=== PATIENT | male | born 1945 | race Caucasian/White ===

== ENCOUNTER → 2016-09-03 | Outpatient (CLI) | payer MEDICARE ==
--- NOTE | 2016-09-03 11:18 | MR ---
MRI kidneys with and without contrast HISTORY: Abnormal renal Patient's renal ultrasound report is available for correlation from outside institution dated 08/12/19 17 Multiplanar multisequence and postcontrast images obtained through the kidneys, patient received 20 c c MultiHance IV The spleen, gallbladder and pancreas are unremarkable. The liver shows signal drop on out of phase im aging suggestive of fatty infiltration. The adrenal glands are normal. The kidneys show no mass, ther e is a somewhat lobular contour correlating to patient's prior report within the right kidney. No abn ormal enhancement to suggest large renal mass. The kidneys excrete contrast bilaterally. Prominent co lumn of Vishal seen suspected within the right kidney. There is no ascites. No pleural effusions evident. IMPRESSION: No evident renal mass.
== END | disposition home or self-care (01) ==
LOC: RADMRIMAIN 08:40
PROVIDERS: ATTEND Urology
DX: C67.9 Malignant neoplasm of bladder, unspecified (principal)
CPT/HCPCS: 74183; A9577

== ENCOUNTER → 2018-05-31 | Outpatient (CLI) | payer MEDICARE ==
--- NOTE | 2018-05-31 12:01 | US ---
EXAMINATION TYPE: US kidneys/renal and bladder DATE OF EXAM: 05/31/2018 COMPARISON: MRI CLINICAL HISTORY: BLADDER CANCER D49.4. H/O Bladder CA EXAM MEASUREMENTS: Right Kidney: 10.6 x 4.5 x 4.5 cm Left Kidney: 11.7 x 5.9 x 4.9 cm Right Kidney: Lobulated contour, Probable prominent Column of Vishal as seen on MRI Left Kidney: Appeared wnl Bladder: Appeared wnl Bilateral Jets seen: No There is no evidence for hydronephrosis at this point in time. No nephrolithiasis is seen. No tamela s are identified. The urinary bladder is anechoic. Bilateral ureteral jets are seen. IMPRESSION: no distinct abnormality
== END | disposition home or self-care (01) ==
LOC: RADUSWWP 10:45
PROVIDERS: ATTEND Urology
DX: D49.4 Neoplasm of unspecified behavior of bladder (principal)
CPT/HCPCS: 76770

== ENCOUNTER 2018-10-25 11:55 | Day surgery (SDC) | payer MEDICARE ==
[2018-10-21 08:56] VITALS: BMI 32.7
--- NOTE | 2018-10-25 06:33 | P.GSHP ---
History of Present Illness H&P Date: 10/25/18 Chief Complaint: Bladder cancer The patient is a 72-year-old white male diagnosed with urothelial carcinoma of the bladder or right ureter in 2008. He underwent resection and subsequently received intravesical BCG. He had a recurrence in 2010. He was diagnosed with T1 grade 3 urothelial carcinoma of the bladder in June 2016. Tumors involving the right hemitrigone, right vesical neck, and bladder dome. He was treated with induction intravesical BCG but had persistent disease in November 2016. He received a second course of induction intravesical BCG, and is now receiving maintenance BCG. Biopsies in August 2017 showed high-grade noninvasive urothelial carcinoma involving the anterior bladder neck. He continued to receive maintenance BCG. In September 2018 he underwent resection of a tumor on the left trigone, which was low-grade urothelial carcinoma with CIS. A small lesion on the verumontanum was resected, revealing high-grade urothelial carcinoma. Lesion was invasive. The patient has elected to continue to receive BCG. He is aware of the risk of disease progression. He will undergo a TURP, both to rule out residual urothelial carcinoma of the prostatic urethra and also to allow better BCG penetration into the prostatic urethra. - Constitutional Constitutional: Denies chills, Denies fever - Genitourinary (Female) Genitourinary: Denies hematuria Past Medical History Past Medical History: Coronary Artery Disease (CAD), Cancer, Diabetes Mellitus, GERD/Reflux, Hypertension, Myocardial Infarction ([place]), Prostate Disorder Additional Past Medical History / Comment(s): gout, "tumors in bladder" Last Myocardial Infarction Date:: 2008 History of Any Multi-Drug Resistant Organisms: None Reported Past Surgical History: Bladder Surgery, Heart Catheterization With Stent, Joint Replacement Additional Past Surgical History / Comment(s): 3 stents, bladder surgery for cancer, cataract surgery, total rt knee replacement Past Anesthesia/Blood Transfusion Reactions: No Reported Reaction Date of Last Stent Placement:: 2008 Smoking Status: Former smoker - Past Family History Brother(s) Family Medical History: Cancer Medications and Allergies Home Medications Medication Instructions Recorded Confirmed Type Acetaminophen Tab [Tylenol] 500 mg PO DIRECTED PRN 01/10/14 10/03/18 History Allopurinol 100 mg PO AC-BRKFST 01/10/14 10/03/18 History Aspirin EC [Ecotrin Low Dose] 81 mg PO DAILY 01/10/14 10/03/18 History Atorvastatin [Lipitor] 40 mg PO DAILY 01/10/14 10/03/18 History Losartan/Hydrochlorothiazide 1 each PO QAM 01/10/14 10/03/18 History [Losartan-Hctz 100-25 mg Tab] Metoprolol Succinate [Toprol XL] 25 mg PO DAILY 01/10/14 10/03/18 History metFORMIN HCL 1,000 mg PO BID 01/10/14 10/03/18 History Insulin Detemir (Levemir) [Levemir] 40 unit SQ HS 10/03/18 History Tamsulosin HCl [Flomax] 0.4 mg PO DAILY 10/03/18 History Cholecalciferol [Vitamin D3] 400 unit PO DAILY 10/21/18 10/21/18 History Multivitamins, Thera [Multivitamin 1 tab PO DAILY 10/21/18 10/21/18 History (formulary)] Allergies Allergy/AdvReac Type Severity Reaction Status Date / Time No Known Allergies Allergy Verified 10/21/18 08:38 Surgical - Exam - General well developed, well nourished, no distress - Respiratory normal respiratory effort - Abdomen Abdomen: soft, non tender, no guarding, no rigid, no rebound - Genitourinary normal penis with no external lesions, testicles non-tender - Psychiatric oriented to time, oriented to person, oriented to place, speech is normal, memory intact Assessment and Plan (1) Malignant neoplasm of bladder Status: Acute Code(s): C67.9 - MALIGNANT NEOPLASM OF BLADDER, UNSPECIFIED SNOMED Code(s): 024829806 (2) Benign prostatic hyperplasia with lower urinary tract symptoms Status: Acute Code(s): N40.1 - BENIGN PROSTATIC HYPERPLASIA WITH LOWER URINARY TRACT SYMP SNOMED Code(s): 386846943 Plan: Cystoscopy, transurethral resection of prostate (TURP). If any lesions are seen within the bladder, these will be resected. Potential risks include anesthesia, bleeding, infection, bladder perforation, incontinence, vesical neck contracture, and urethral stricture.
[2018-10-25] MEDS: LACTATED RINGERS 1,000 ML IV SCH ×2 (12:45→13:20)
[2018-10-25 12:47] LABS: Glucose,Whole Blood 129 mg/dL (75-99)
[2018-10-25 12:56] LABS: Basophils # (A) 0.1 k/uL (0-0.2); Basophils % (A) 1 %; Eosinophils # (A) 0.5 k/uL (0-0.7); Eosinophils % (A) 6 %; HCT 44.2 % (39.0-53.0); HGB 14.8 gm/dL (13.0-17.5); Lymphocytes # (A) 1.9 k/uL (1.0-4.8); Lymphocytes % (A) 22 %; MCH 31.4 pg (25.0-35.0); MCHC 33.4 g/dL (31.0-37.0); MCV 94.2 fL (80.0-100.0); Mean Platelet Volume 8.4; Monocytes # (A) 0.5 k/uL (0-1.0); Monocytes % (A) 6 %; Neutrophils # (A) 5.6 k/uL (1.3-7.7); Neutrophils % (A) 63 %; Platelet Count 232 k/uL (150-450); RDW 14.4 % (11.5-15.5); WBC 8.8 k/uL (3.8-10.6)
[2018-10-25] MEDS ORDERED: ONDANSETRON 4 MG/2 ML VIAL IVP ONE (13:01)
[2018-10-25] MEDS ORDERED: DEXAMETHASONE SOD PHOSPHATE 10 MG/ML 1 ML VIAL IV ONE (13:02)
[2018-10-25 13:10] LABS: Calcium 9.1 mg/dL (8.4-10.2); Potassium 4.4 mmol/L (3.5-5.1)
[2018-10-25] MEDS ORDERED: SUCCINYLCHOLINE CHLORIDE 100 MG/5 ML SYR IV ONE (13:18)
[2018-10-25] MEDS ORDERED: MIDAZOLAM 2 MG/2 ML VIAL ONE (13:18)
[2018-10-25] MEDS ORDERED: fentaNYL (PF) 50 MCG/ML 2 ML AMP ONE (13:18)
[2018-10-25] MEDS ORDERED: PROPOFOL 10 MG/ML 20 ML VIAL IV ONE (13:18)
[2018-10-25] MEDS ORDERED: LIDOCAINE 1% INJ 10MG/ML (20 ML MDV) ONE (13:18)
[2018-10-25 15:00] VITALS: RESP 16; TEMP 97
--- NOTE | 2018-10-25 15:13 | P.OP ---
Date of Procedure: 10/25/18 Preoperative Diagnosis: BPH, urothelial carcinoma of the bladder Postoperative Diagnosis: Same Procedure(s) Performed: Cystoscopy, TURbladder tumors (Medium), transurethral resection of prostate (TURP) Anesthesia: ERVIN Surgeon: Sharif Crowe Estimated Blood Loss (ml): 20 IV fluids (ml): 500 Pathology: other (Biopsies from right bladder dome, left trigone, prostatic urethra) Condition: stable Disposition: PACU Indications for Procedure: The patient is a 72-year-old white male diagnosed with urothelial carcinoma of the bladder or right ureter in 2008. He underwent resection and subsequently received intravesical BCG. He had a recurrence in 2010. He was diagnosed with T1 grade 3 urothelial carcinoma of the bladder in June 2016. Tumors involving the right hemitrigone, right vesical neck, and bladder dome. He was treated with induction intravesical BCG but had persistent disease in November 2016. He received a second course of induction intravesical BCG, and is now receiving maintenance BCG. Biopsies in August 2017 showed high-grade noninvasive urothelial carcinoma involving the anterior bladder neck. He continued to receive maintenance BCG. In September 2018 he underwent resection of a tumor on the left trigone, which was low-grade urothelial carcinoma with CIS. A small lesion on the verumontanum was resected, revealing high-grade urothelial carcinoma. Lesion was invasive. The patient has elected to continue to receive BCG. He is aware of the risk of disease progression. He will undergo a TURP, both to rule out residual urothelial carcinoma of the prostatic urethra and also to allow better BCG penetration into the prostatic urethra. Operative Findings: No definite evidence of residual carcinoma Description of Procedure: The patient was taken in the operating room and placed in the dorsolithotomy position. The external genitalia was prepped and draped sterilely. The [place] urethrotome was used to incise the urethra to 26-Australian. The 25-Australian [facility] resectoscope sheath was introduced into the bladder. The bladder was inspected. Inflammation was noted on the left hemitrigone due to recent resection. The left ureteral orifice was not seen. The right ureteral orifice was gaping, and the distal ureter appears normal. A small diverticulum was seen at the right bladder dome. Adjacent to this was an area of erythema. Examination of the prostate revealed partial obstruction with a bilobar configuration. Using the bipolar cutting loop, the area of erythema at the right bladder dome was resected down to the muscle. Next, tissue from the left hemitrigone was resected down to the muscle. The base of the resection bed at the dome was fulgurated, obtaining excellent hemostasis. Fulguration was utilized more sparingly within the trigone, though hemostasis was excellent. The posterior prostatic urethra and proximal verumontanum were resected next, and sent as a separate specimen. Next, the posterior aspect of the lateral lobes were resected. The prostatic fossa was then carefully examined, and any areas of bleeding were controlled with electrocautery. Excellent hemostasis was attained. The resectoscope was withdrawn into the bulbous urethra. The external urinary sphincter remained intact. The prostatic fossa was open. The resectoscope was removed, and a 20 Australian Galarza catheter was placed. The return was clear. The patient tolerated the procedure well was taken to the recovery room in stable condition.
[2018-10-25 15:19] LABS: Glucose,Whole Blood 122 mg/dL (75-99)
[2018-10-25 15:57] VITALS: BP 139/81; PULSE 74
== END 2018-10-25 16:43 | disposition home or self-care (01) ==
LOC: OR 11:55
PROVIDERS: ATTEND Urology
DX: N32.89 Other specified disorders of bladder (principal); N40.1 Benign prostatic hyperplasia with lower urinary tract symptoms; N13.8 Other obstructive and reflux uropathy; N32.3 Diverticulum of bladder; I25.10 Atherosclerotic heart disease of native coronary artery without angina pectoris; I10 Essential (primary) hypertension; E78.5 Hyperlipidemia, unspecified; Z87.891 Personal history of nicotine dependence; E11.9 Type 2 diabetes mellitus without complications; K21.9 Gastro-esophageal reflux disease without esophagitis; Z98.1 Arthrodesis status; I25.2 Old myocardial infarction; M10.9 Gout, unspecified; Z79.82 Long term (current) use of aspirin; Z79.4 Long term (current) use of insulin; Z79.899 Other long term (current) drug therapy
CPT/HCPCS: 88305; 80048; 85025; 52601; 88307; 52235; J1100; J0690; J2405

== ENCOUNTER 2019-02-01 07:58 | Day surgery (SDC) | payer MEDICARE ==
[2019-02-01 08:34] LABS: Mean Platelet Volume 9.1; Platelet Count 200 k/uL (150-450)
[2019-02-01 08:41] LABS: Prothrombin Time 10.9 sec (9.0-12.0)
[2019-02-01] MEDS ORDERED: ALPRAZolam 0.25 MG TAB PO STA (08:52)
[2019-02-01 08:56] VITALS: TEMP 98.3
[2019-02-01 10:34] VITALS: BP 141/76; PULSE 69; RESP 18
--- NOTE | 2019-02-02 08:02 | CT ---
EXAMINATION TYPE: CT discontinued procedure DATE OF EXAM: 02/01/2019 COMPARISON: CT 12/15/2018 HISTORY: Lung nodule CT DLP: 344 mGycm Automated exposure control for dose reduction was used. Helical imaging performed in a limited fashio n through the level of the lung nodule. FINDINGS: Maximal barrier technique was utilized. The skin overlying a suitable path to the patient's nodule wa s localized with CT and the overlying skin prepped and draped. Lidocaine used for local anesthesia. O n additional breath holds and localization for the needle the nodule shows a changing location likely due to differences breath holds. Exam is aborted. No immediate complication. Patient remained in sta ble condition. Needle was removed. IMPRESSION: ATTEMPTED LUNG BIOPSY DESCRIBED. EXAM WAS ABORTED.
== END 2019-02-01 10:31 | disposition home or self-care (01) ==
LOC: RADPROMAIN 07:58 → 1SOBS 09:20 → RADPROMAIN 09:20
PROVIDERS: ATTEND Surgery
DX: R91.1 Solitary pulmonary nodule (principal); Z53.09 Procedure and treatment not carried out because of other contraindication
CPT/HCPCS: 82565; 82947; 84520; 85049; 85610; 76380; Q9967

== ENCOUNTER → 2019-04-15 | Outpatient (CLI) | payer MEDICARE ==
[2019-04-15 09:15] LABS: Basophils # (A) 0.1 k/uL (0-0.2); Basophils % (A) 1 %; Eosinophils # (A) 0.3 k/uL (0-0.7); Eosinophils % (A) 4 %; HCT 45.6 % (39.0-53.0); HGB 14.6 gm/dL (13.0-17.5); Lymphocytes # (A) 2.1 k/uL (1.0-4.8); Lymphocytes % (A) 28 %; MCH 30.4 pg (25.0-35.0); MCV 95.1 fL (80.0-100.0); Monocytes # (A) 0.6 k/uL (0-1.0); Monocytes % (A) 8 %; Neutrophils # (A) 4.2 k/uL (1.3-7.7); Neutrophils % (A) 57 %; Platelet Count 199 k/uL (150-450); RBC 4.79 m/uL (4.30-5.90); RDW 12.4 % (11.5-15.5); WBC 7.3 k/uL (3.8-10.6)
[2019-04-15 09:25] LABS: Potassium 4.5 mmol/L (3.5-5.1)
[2019-04-15 09:31] LABS: Partial Thromboplastin Time 22.5 sec (22.0-30.0); Prothrombin Time 10.8 sec (9.0-12.0)
[2019-04-15 10:01] LABS: Appearance,Urine Clear (Clear); Bilirubin,Urine Negative (Negative); Blood,Urine Negative (Negative); Color,Urine Yellow; Glucose,Urine (UA) Negative (Negative); Ketones,Urine Negative (Negative); Leukocyte Esterase,Urine Negative (Negative); Nitrite,Urine Negative (Negative); Protein,Urine Negative (Negative); Specific Gravity,Urine 1.021 (1.001-1.035); Urobilinogen,Urine <2.0 mg/dL (<2.0)
== END ==
LOC: LABPAT 08:51
PROVIDERS: ATTEND Thoracic Surgery (Cardiothoracic Vascular Surgery)
DX: Z01.812 Encounter for preprocedural laboratory examination (principal); C34.12 Malignant neoplasm of upper lobe, left bronchus or lung
CPT/HCPCS: 80051; 81003; 82565; 82947; 84520; 85025; 85610; 85730; 87086

== ENCOUNTER 2019-04-20 05:59 | Inpatient (IN) | payer MEDICARE ==
[2019-04-13 16:02] VITALS: BMI 33.3
[~2019-04-20 05:59] MED LIST: DEXAMETHASONE SOD PHOSPHATE 10 MG/ML 1 ML VIAL IV ONE; LIDOCAINE 1% (10MG/ML) FOR IV START INTRADERMA PRN; MIDAZOLAM 2 MG/2 ML VIAL IV PRN; ONDANSETRON 4 MG/2 ML VIAL IVP ONE; fentaNYL (PF) 50 MCG/ML 2 ML AMP IVP PRN
[2019-04-20] MEDS ORDERED: LIDOCAINE 1% (10MG/ML) FOR IV START INTRADERMA ONE (06:50)
[2019-04-20] MEDS: LACTATED RINGERS 1,000 ML IV SCH (06:50)
[2019-04-20 06:58] LABS: Glucose,Whole Blood 202 mg/dL (75-99)
[2019-04-20] MEDS ORDERED: MIDAZOLAM 2 MG/2 ML VIAL IV ONE (07:20)
[2019-04-20] MEDS ORDERED: PHENYLEPHRINE-0.9% NACL SYG 1 MG/10 ML SYRINGE ONE (07:32)
[2019-04-20] MEDS ORDERED: GLYCOPYRROLATE 0.2 MG/ML 2 ML VIAL ONE (07:32)
[2019-04-20] MEDS ORDERED: LIDOCAINE 1% INJ 10MG/ML (20 ML MDV) ONE (07:32)
[2019-04-20] MEDS ORDERED: NEOSTIGMINE 1 MG/ML 10 ML VIAL ONE (07:32)
[2019-04-20] MEDS ORDERED: HYDROmorphone (PF) 1 MG/ML ONE (07:32)
[2019-04-20] MEDS ORDERED: ROCURONIUM BROMIDE 10 MG/ML 5 ML VIAL IV ONE (07:32)
[2019-04-20] MEDS ORDERED: PROPOFOL 10 MG/ML 20 ML VIAL IV ONE (07:32)
[2019-04-20] MEDS ORDERED: fentaNYL (PF) 50 MCG/ML 2 ML AMP ONE (07:32)
[2019-04-20] MEDS ORDERED: BUPIVACAINE (PF) 0.5% 30 ML VIAL SQ ONE (08:37)
[2019-04-20] MEDS ORDERED: LACTATED RINGERS 1,000 ML IV ONE (10:17)
--- NOTE | 2019-04-20 11:06 | P.OP ---
Date of Procedure: 04/20/19 Preoperative Diagnosis: Squamous cell carcinoma left upper lobe Postoperative Diagnosis: Same Procedure(s) Performed: Robotic-assisted thoracoscopic left upper lobectomy with mediastinal lymph node dissection Anesthesia: ERVIN Surgeon: Juancarlos Palafox Janitorial Assistant #1: Aric Yu Janitorial Assistant #2: Arie Morales Estimated Blood Loss (ml): 100 IV fluids (ml): 1,500 Urine output (ml): 300 Pathology: other (Left upper lobe, lymph nodes from station was L5, L6, 7, L8, L 10, L 11) Condition: stable Disposition: PACU Indications for Procedure: 73-year-old male with enlarging peripheral mass in the left upper lobe biopsy- proven squamous cell carcinoma with no evidence of metastasis by PET scan. Operative Findings: Small peripheral mass left upper lobe was overlying pleural retraction, moderate anthracotic adenopathy in the mediastinal and hilar regions Description of Procedure: The patient was brought to the operating room, placed supine on the operating table, anesthetized and intubated. Double lumen tube was placed and positioned with fiberoptic bronchoscopy. No endobronchial lesions were noted. Tube was secured and the patient turned in the right lateral decubitus position and appropriately positioned for robotic lobectomy. The left chest was marked and then sterilely prepped and draped. For robotic ports were placed. The first was placed in the seventh interspace in the anterior axillary line and was an 8 mm port. 10 cm anterior and 10 cm posterior to this to 10.5 cm ports were placed. Posteriorly in the fourth interspace a second 8 mm port was placed. Working port was placed at the level of the diaphragm between the 2 most anterior port. CO2 insufflation had begun once the first port was placed and co nfirmation of placement in the pleural space was obtained. The robot was now docked. Dissection was begun in the inferior pulmonary ligament and this was taken down. Dissection was continued posteriorly. The LAD and level VII lymph nodes were dissected and sent for permanent section. Dissection was carried along the mainstem bronchus and the L 10 lymph nodes were sent. Dissection was continued superiorly on the pulmonary artery. L6 lymph nodes were dissected and sent. The superior segmental branch of the pulmonary artery was identified to the superior segment of the left lower lobe. Dissection was carried superior to this and a moderate-sized branch of the pulmonary artery leading to the upper lobe was identified. This was dissected out and ligated and divided with a robotic vascular stapler. Dissection was now carried into the fissure. We were able to identify the pulmonary artery at the depths of the fissure and divide the fissure posterior to this with a single firing of a robotic medium stapler. We are now able to dissected out the lingular branch of the pulmonary artery and ligated and divided it with a robotic stapler. Dissection was now carried anteriorly. The superior pulmonary vein was dissected out. Was ligated and divided with a robotic stapler. Dissection was carried back onto the left mainstem bronchus. The division of the left mainstem bronchus to upper and lower lobe was identified. L 11 lymph nodes were dissected in this region and sent for permanent section. The upper lobe bronchus was encircled and ligated and divided with a robotic green stapler. We were now able to identify and ligate and divide the final remaining branch of the pulmonary artery which was the truncus anteriosus cyst. This was divided with a single firing of a robotic vascular stapler. The fissures were now completed with several firings of a robotic blue stapler. Lobectomy specimen was placed in an Endo Catch bag. The hilum was checked for hemostasis. There was a little bit of bright red oozing and this was controlled with some Surgicel. Chest was then irrigated with warm water and the lung inflated and the bronchial stump was checked and noted to be without air leak. 28-Qatari chest tube was post placed through the most anterior robotic port incision and positioned posterior apically. It was secured with an 0 Ethibond suture. The lung was inflated. The robot was undocked and the incisions closed with layers of Vicryl suture. The lobectomy specimen had been removed through the working port incision which required only minimal enlargement. The specimen was sent for frozen section of the bronchial margin which returned negative. Rib blocks were performed at the level incision with half percent Marcaine posteriorly. Dry sterile dressings were applied and the patient was turned supine and extubated and transferred to recovery in stable condition.
[2019-04-20] MEDS: HYDROmorphone 0.5 MG/0.5 ML SYRINGE IVP PRN ×4 (11:37→12:45)
[2019-04-20 11:43] LABS: Glucose,Whole Blood 197 mg/dL (75-99)
--- NOTE | 2019-04-20 11:57 | XR ---
EXAMINATION TYPE: XR chest 1V portable DATE OF EXAM: 04/20/2019 COMPARISON: CT chest 12/15/2018, chest x-ray 1 01/16/2014 HISTORY: Chest tube, postop TECHNIQUE: Single frontal view of the chest is obtained. FINDINGS: Left-sided chest tube is in place. Small left pneumothorax is present. Subcutaneous emphys rober is noted. No evident pleural effusion. Patient is rotated. Heart size is within normal limits. Dolores ng volumes are low. IMPRESSION: Indwelling chest tube as described.
[2019-04-20 12:57] LABS: Glucose,Whole Blood 223 mg/dL (75-99)
[2019-04-20] MEDS ORDERED: BISACODYL 10 MG SUPP RECTAL PRN (13:11)
[2019-04-20] MEDS ORDERED: SODIUM CHLORIDE 0.9% 1,000 ML IV SCH (13:11)
[2019-04-20] MEDS ORDERED: ONDANSETRON 4 MG/2 ML VIAL IVP PRN (13:11)
[2019-04-20] MEDS ORDERED: PANTOPRAZOLE 40 MG TABLET PO PRN (13:11)
[2019-04-20] MEDS ORDERED: IPRATROPIUM-ALBUTEROL 3 ML NEB IH PRN (13:11)
[2019-04-20 14:35] LABS: HCT 40.9 % (39.0-53.0); HGB 13.2 gm/dL (13.0-17.5); MCH 31.6 pg (25.0-35.0); MCHC 32.3 g/dL (31.0-37.0); MCV 97.7 fL (80.0-100.0); Mean Platelet Volume 9.3; Platelet Count 194 k/uL (150-450); RBC 4.19 m/uL (4.30-5.90); RDW 12.6 % (11.5-15.5); WBC 14.1 k/uL (3.8-10.6)
[2019-04-20] MEDS: KETOROLAC 30 MG/ML 1 ML VIAL IVP SCH ×2 (14:54→20:17)
[2019-04-20] MEDS: traMADol 50 MG TAB PO SCH ×2 (14:56→20:17)
[2019-04-20 15:09] LABS: Calcium 8.4 mg/dL (8.4-10.2); Potassium 4.4 mmol/L (3.5-5.1)
[2019-04-20] MEDS: IPRATROPIUM-ALBUTEROL 3 ML NEB IH SCH ×3 (15:32→20:11)
[2019-04-20 16:34] LABS: Glucose,Whole Blood 231 mg/dL (75-99)
--- NOTE | 2019-04-20 17:00 | CONS ---
CONSULTATION Dax Walsh is a 73-year-old male who presented to [facility] and underwent left upper lobectomy for squamous cell cancer of the lung. He had presented initially in June of 2018 with a left upper lobe mass. He had a PET scan that was slightly positive and had a repeat CT scan which showed an increase in the size of the mass. He was subsequently referred to Thoracic Surgery in September of 2018 for resection. He underwent resection today and has some pain in the left at the surgical site but otherwise does not complain of any shortness of breath. PAST MEDICAL HISTORY: His past medical history is positive for bladder cancer, history of a previous acute myocardial infarction, history of carpal tunnel syndrome, history of gout, history of bilateral cataract surgery, history of cardiac stent placement, colonoscopy. SOCIAL HISTORY: Patient is a former smoker. He quit smoking 30 years ago. He does not drink alcohol excessively. MEDICATIONS: Medications prior to admission were cannabidiol, aspirin EC, metformin, tamsulosin, Prilosec, Singulair, Toprol-XL, Hyzaar, Levemir insulin, vitamin D3, barley powder, Lipitor and acetaminophen. REVIEW OF SYSTEMS: Noncontributory. PHYSICAL EXAMINATION: His blood pressure is 129/65, respiratory rate of 16, pulse rate of 67. Oxygen saturation on 3 L by nasal cannula is 97%. HEENT reveals pupils that are equal. Chest reveals decreased breath sounds on the left with chest tube in place. Right is relatively clear. Cardiovascular system is in S1, S2. Abdomen is soft. There is no pedal edema. White count is 14.1, hemoglobin of 13.2, glucose of 223. Chest x-ray shows evidence of left-sided chest tube with a small left pneumothorax, some subcutaneous emphysema. IMPRESSION AT THIS TIME: 1. Squamous cell cancer of the lung, status post left upper lobectomy with lymph node dissection. 2. History of bladder cancer. 3. Diabetes mellitus. 4. Coronary artery disease. At this point in time, I would recommend incentive spirometry. I have talked to the nurse to see if he can get an incentive spirometer, which he does not have. Keep him on GI and DVT prophylaxis. Would only use bronchodilators on a p.r.n. basis, as his preoperative pulmonary function test was relatively normal. I would like to thank you for allowing me the privilege of participating in the care of my patient. We will follow him closely during his hospital stay and appreciate the opportunity to participate in his care. MICHAEL / ANDI: [id number] /
[2019-04-20] MEDS: HEPARIN SODIUM,PORCINE 5,000 UNIT/ML 1 ML VIAL SQ SCH ×2 (17:03→22:23)
[2019-04-20] MEDS: ACETAMINOPHEN IV (For NPO) 1,000 MG in EMPTY BAG 1 BAG IVPB SCH ×2 (17:03→20:19)
[2019-04-20] MEDS: INSULIN ASPART (NovoLOG) 100 UNIT/ML VIAL SQ SCH ×2 (17:07→20:19)
[2019-04-20 20:13] LABS: Glucose,Whole Blood 181 mg/dL (75-99)
[2019-04-20] MEDS: ATORVASTATIN 40 MG TAB PO SCH (20:18)
[2019-04-20] MEDS: INSULIN DETEMIR (LEVEMIR) 100 UNIT/ML SYR SQ SCH (20:18)
[2019-04-21] MEDS: KETOROLAC 30 MG/ML 1 ML VIAL IVP SCH ×2 (04:34→08:53)
[2019-04-21 06:17] LABS: Glucose,Whole Blood 162 mg/dL (75-99)
[2019-04-21] MEDS: INSULIN ASPART (NovoLOG) 100 UNIT/ML VIAL SQ SCH ×4 (06:34→21:53)
[2019-04-21 06:40] LABS: Basophils % (A) 0 %; Eosinophils # (A) 0.3 k/uL (0-0.7); Eosinophils % (A) 4 %; HCT 36.2 % (39.0-53.0); HGB 11.9 gm/dL (13.0-17.5); Lymphocytes # (A) 1.3 k/uL (1.0-4.8); Lymphocytes % (A) 16 %; MCH 31.3 pg (25.0-35.0); MCHC 32.8 g/dL (31.0-37.0); MCV 95.6 fL (80.0-100.0); Mean Platelet Volume 9.2; Monocytes # (A) 0.5 k/uL (0-1.0); Monocytes % (A) 7 %; Neutrophils % (A) 73 %; Platelet Count 168 k/uL (150-450); RBC 3.79 m/uL (4.30-5.90); RDW 12.6 % (11.5-15.5); WBC 8.3 k/uL (3.8-10.6)
[2019-04-21 06:51] LABS: Calcium 7.9 mg/dL (8.4-10.2); Potassium 4.3 mmol/L (3.5-5.1)
--- NOTE | 2019-04-21 07:52 | XR ---
EXAMINATION TYPE: XR chest 1V DATE OF EXAM: 04/21/2019 COMPARISON: Prior chest x-ray 04/20/2019 HISTORY: Chest tube TECHNIQUE: Single frontal view of the chest is obtained. FINDINGS: There is no significant interval change. Patchy density present at the lung base likely po stoperative. IMPRESSION: Left-sided chest tube is in place. No sizable pneumothorax. Cardiomediastinal silhouette shows a similar appearance.
[2019-04-21] MEDS: IPRATROPIUM-ALBUTEROL 3 ML NEB IH SCH ×4 (08:11→20:58)
[2019-04-21] MEDS: HEPARIN SODIUM,PORCINE 5,000 UNIT/ML 1 ML VIAL SQ SCH ×2 (08:52→16:21)
[2019-04-21] MEDS: CHOLECALCIFEROL 400 UNIT TAB PO SCH (08:53)
[2019-04-21] MEDS: ASPIRIN 81 MG PO SCH (08:53)
[2019-04-21] MEDS: MULTIVITAMINS, THERA 1 EACH TAB PO SCH (08:58)
[2019-04-21] MEDS: TAMSULOSIN 0.4 MG CAP.ER.24H PO SCH (08:58)
[2019-04-21] MEDS ORDERED: METOPROLOL SUCCINATE (ER) 25 MG TAB.ER.24H PO SCH (09:00)
[2019-04-21] MEDS ORDERED: LOSARTAN-HCTZ 50-12.5 MG 1 EACH TAB PO SCH (09:00)
[2019-04-21] MEDS: traMADol 50 MG TAB PO SCH ×4 (09:53→21:52)
[2019-04-21] MEDS ORDERED: ACETAMINOPHEN TAB 500 MG TAB PO PRN (10:14)
--- NOTE | 2019-04-21 11:07 | P.PN ---
Subjective Progress Note Date: 04/21/19 Principal diagnosis: Squamous cell carcinoma left upper lobe. Past medical history significant for type 2 diabetes mellitus, hypertension, hyperlipidemia, cardiomegaly asthma, sandro dder cancer, myocardial infarction, gout, coronary artery disease with previous multiple stent placement, and remote history of smoking quit over 30 years ago. POD #1 robotic assisted thoracoscopic left upper lobectomy with mediastinal lymph node dissection. The patient is sitting up to the bedside chair on the cardiac stepdown unit. He is in no acute distress. Denies any complaints of shortness of breath and is only complaining of surgical type pain with taking a deep breath. He ambulated with minimal assistance in the cardiac stepdown unit hallway and tolerated well. Oxygen saturations 96% on 2 L nasal cannula and he is achieving 1000 mL on his incentive spirometry. Left pleural chest tube remains in place to water seal. No air leak is present. 60 mL output in the last 8 hours, 430 mL output since surgery. He is tolerating oral intake. A chest x-ray was completed this [facility] [place] which demonstrated a left pleural chest tube to be in place with no sizable pneumothorax. Objective - Vital Signs Vital signs: Vital Signs Temp 97.8 F 04/21/19 10:02 Pulse 76 04/21/19 10:02 Resp 18 04/21/19 10:02 BP 129/76 04/21/19 10:02 Pulse Ox 96 04/21/19 10:02 Intake & Output 04/20/19 04/21/19 04/21/19 18:59 06:59 18:59 Intake Total 2440 944 240 Output Total 675 795 30 Balance 1765 149 210 Weight 107 kg Intake: IV 1900 Intake, IV Titration 500 Amount ACETAMINOPHEN IV (For NPO 400 ) 1,000 mg In Empty Bag 1 bag @ 400 mls/hr IVPB Q6H ITA Rx#:[id number] ceFAZolin 2 gm In Sodium 100 Chloride 0.9% 50 ml @ 100 mls/hr IVPB Q8HR ITA Rx# :[id number] Oral 540 444 240 Output: Drainage 120 30 Chest 120 30 Urine 475 675 Pleural Fluid 100 Estimated Blood Loss 100 Other: Voiding Method Indwelling Catheter Indwelling Catheter - Constitutional General appearance: Present: cooperative, no acute distress, obese - Respiratory Details: Lung sounds essentially clear throughout, diminished to his left lower lobe. Respirations are symmetrical and nonlabored. Oxygen saturation is 96% on 2 L nasal cannula. Achieving 1000 mL on his incentive spirometry. Pleural chest tube remains in place to low continuous wall suction -20 cm H2O. No air leak is present. Draining thin serosanguineous drainage with 60 mL output in the last 8 hours, 430 mL output since surgery. - Cardiovascular Details: Regular rhythm and rate. S1 and S2 present, negative for S3, gallop or murmur. No edema present. Sequential compression devices in place to his bilateral lower extremities. - Gastrointestinal Gastrointestinal Comment(s): Abdomen is soft, nontender and nondistended. Active bowel sounds present all 4 abdominal quadrants. No guarding or rigidity. Tolerating oral intake. Passing flatus. - Genitourinary Genitourinary Comment(s): Following clear yellow urine. 350 mL output in the last 8 hours. - Integumentary Integumentary Comment(s): Skin is warm and dry. No clubbing or cyanosis is present. Left chest incisions with dressings clean, dry and in place. - Neurologic Neurologic: Present: CNII-XII intact - Musculoskeletal Musculoskeletal: Present: gait normal, strength equal bilaterally - Psychiatric Psychiatric: Present: A&O x's 3, appropriate affect, intact judgment & insight - Allied health notes Allied health notes reviewed: nursing - Labs CBC & Chem 7: 04/21/19 06:12 04/21/19 06:12 Labs: Abnormal Lab Results - Last 24 Hours (Table) 04/20/19 04/20/19 04/20/19 Range/Units 11:39 12:56 13:55 WBC (3.8-10.6) k/uL RBC (4.30-5.90) m/uL Hgb (13.0-17.5) gm/dL Hct (39.0-53.0) % Sodium (137-145) mmol/L BUN (9-20) mg/dL Creatinine (0.66-1.25) mg/dL Glucose 229 H (74-99) mg/dL POC Glucose (mg/dL) 197 H 223 H (75-99) mg/dL Calcium (8.4-10.2) mg/dL 04/20/19 04/20/19 04/20/19 Range/Units 13:56 16:32 20:12 WBC 14.1 H (3.8-10.6) k/uL RBC 4.19 L (4.30-5.90) m/uL Hgb (13.0-17.5) gm/dL Hct (39.0-53.0) % Sodium (137-145) mmol/L BUN (9-20) mg/dL Creatinine (0.66-1.25) mg/dL Glucose (74-99) mg/dL POC Glucose (mg/dL) 231 H 181 H (75-99) mg/dL Calcium (8.4-10.2) mg/dL 04/21/19 04/21/19 04/21/19 Range/Units 06:12 06:12 06:15 WBC (3.8-10.6) k/uL RBC 3.79 L (4.30-5.90) m/uL Hgb 11.9 L (13.0-17.5) gm/dL Hct 36.2 L (39.0-53.0) % Sodium 134 L (137-145) mmol/L BUN 24 H (9-20) mg/dL Creatinine 1.28 H (0.66-1.25) mg/dL Glucose 159 H (74-99) mg/dL POC Glucose (mg/dL) 162 H (75-99) mg/dL Calcium 7.9 L (8.4-10.2) mg/dL - Imaging and Cardiology Chest x-ray: report reviewed, image reviewed Assessment and Plan Assessment: 1. Squamous cell carcinoma left upper lobe, status post robotic-assisted thoracoscopic left upper lobectomy with mediastinal lymph node dissection 2. Type 2 diabetes mellitus 3. Hypertension 4. Hyperlipidemia 5. History of myocardial infarction 6. Cardiomegaly 7. History of coronary artery disease with previous multiple stent placements 8. History of bladder cancer 9. Asthma 10. History of gout 11. Remote history of smoking quit over 30 years ago Plan: 1. Keep left pleural chest tube in place to water seal. Continue to record accurate I's and O's. 2. Encourage use of his incentive spirometry every hour while awake. 3. Wean oxygen as tolerated. Bronchodilator and pulmonary management recommen dations per Dr. JORJE Rasheed. 4. Encourage ambulation as tolerated. Physical and occupational therapy consulted. Out of bed for all meals. 5. Surgical pathology results remain pending. 6. Pain control per current when necessary orders. Discontinue Toradol as his BUN and creatinine are slightly elevated today. 7. Medical management/diabetes management per primary care service. 8. Continue to monitor daily labs and chest x-rays. 9. GI and DVT prophylaxis. 10. More recommendations to follow based on patient's clinical course. Time with Patient: Greater than 30
[2019-04-21 12:07] LABS: Glucose,Whole Blood 227 mg/dL (75-99)
--- NOTE | 2019-04-21 12:12 | PN ---
PROGRESS NOTE DATE OF SERVICE: 04/21/2019 He has been hemodynamically stable. He is less short of breath. He has less pain at his surgical site. He does not have an air leak on the left and has decreased chest tube output over the last 8 hours. PHYSICAL EXAMINATION: His blood pressure is 115/68, respiratory rate of 16, pulse rate of 68, temperature 98.2, O2 saturation on 2 L by nasal cannula is 94%. HEENT is unremarkable. Chest reveals decreased breath sounds on the left with chest tube in place. Right is relatively clear. Cardiovascular system reveals an S1, S2. Abdomen is soft. There is no pedal edema. LABS: Reveal white count 8.3, hemoglobin of 11.9. Chest x-ray shows no pneumothorax but chest tube place on the left. IMPRESSION: 1. Status post left upper lobectomy with lymph node dissection. 2. History of bladder cancer. Continue incentive spirometry, increase his activity level. Consider removal of chest tube at this time. MMODL / IJN: [id number] /
--- NOTE | 2019-04-21 12:24 | P.CONS ---
History of Present Illness - Reason for Consult Management of type 2 diabetes mellitus and hypertension - History of Present Illness Patient developed pleasant 73-year-old gentleman came admitted for elective left upper lobectomy first, cell cancer of the lung underwent surgery patient has a left-sided chest tube which is still draining. Patient is complaining of pain in moderate pain which is controlled with pain medications. Pain increases with deep breathing. Patient had any fever chills cough. Patient denied any nausea vomiting. Patient blood sugars are fairly controlled on present regimen on long-acting insulin sliding scale insulin metformin is on hold Review of Systems REVIEW OF SYSTEMS: CONSTITUTIONAL: No fever, no malaise, no fatigue. HEENT: No recent visual problems or hearing problems. Denied any sore throat. CARDIOVASCULAR: No orthopnea, PND, no palpitations, no syncope. PULMONARY: No shortness of breath, no cough, no hemoptysis. GASTROINTESTINAL: No diarrhea, no nausea, no vomiting, no abdominal pain. NEUROLOGICAL: No headaches, no weakness, no numbness. HEMATOLOGICAL: Denies any bleeding or petechiae. GENITOURINARY: Denies any burning micturition, frequency, or urgency. MUSCULOSKELETAL/RHEUMATOLOGICAL: Denies any joint pain, swelling, or any muscle pain. ENDOCRINE: Denies any polyuria or polydipsia. The rest of the 14-point review of systems is negative. Past Medical History Past Medical History: Coronary Artery Disease (CAD), Cancer, Diabetes Mellitus, GERD/Reflux, Hyperlipidemia, Hypertension, Myocardial Infarction (ME), Prostate Disorder Additional Past Medical History / Comment(s): gout, bladder Ca, finishing intrabladder dwelling chemo (BCG) treatment week of 01/24/19 Last Myocardial Infarction Date:: 2008 History of Any Multi-Drug Resistant Organisms: None Reported Past Surgical History: Bladder Surgery, Heart Catheterization With Stent, Joint Replacement Additional Past Surgical History / Comment(s): 3 cardiac stents, bladder surgery for cancer, anais cataract surgery, total anais knee replacement, cervical fusion Past Anesthesia/Blood Transfusion Reactions: No Reported Reaction Date of Last Stent Placement:: 2008 Past Psychological History: No Psychological Hx Reported Smoking Status: Former smoker Past Alcohol Use History: Rare Additional Past Alcohol Use History / Comment(s): quit - sep 2008 Past Drug Use History: None Reported Additional Drug Use History / Comment(s): cbd cream to knees for pain - Past Family History Brother(s) Family Medical History: Cancer Medications and Allergies Home Medications Medication Instructions Recorded Confirmed Type Acetaminophen Tab [Tylenol] 500 mg PO DIRECTED PRN 01/10/14 04/13/19 History Aspirin EC [Ecotrin Low Dose] 81 mg PO DAILY 01/10/14 04/13/19 History Atorvastatin [Lipitor] 40 mg PO HS 01/10/14 04/13/19 History Metoprolol Succinate [Toprol XL] 25 mg PO DAILY 01/10/14 04/13/19 History metFORMIN HCL 1,000 mg PO BID 01/10/14 04/13/19 History Insulin Detemir (Levemir) [Levemir] 40 unit SQ HS 10/03/18 04/13/19 History Tamsulosin HCl [Flomax] 0.4 mg PO DAILY 10/03/18 04/13/19 History Cholecalciferol [Vitamin D3] 400 unit PO DAILY 10/21/18 04/13/19 History Multivitamins, Thera [Multivitamin 1 tab PO DAILY 10/21/18 04/13/19 History (formulary)] Montelukast [Singulair] 10 mg PO DAILY PRN 01/24/19 04/13/19 History Barley Powder Pill 1 tab PO BID 04/13/19 04/13/19 History Cannabidiol (Cbd) Extract 1 dose TOPICAL DAILY PRN 04/13/19 04/13/19 History [Epidiolex] Losartan/Hydrochlorothiazide 1 tab PO DAILY 04/13/19 04/13/19 History [Hyzaar 50-12.5 Tablet] Omeprazole [PriLOSEC] 40 mg PO DAILY PRN 04/13/19 04/13/19 History Allergies Allergy/AdvReac Type Severity Reaction Status Date / Time No Known Allergies Allergy Verified 04/20/19 06:31 Physical Exam Vitals: Vital Signs Temp Pulse Pulse Pulse Resp BP BP 04/21/19 12:00 68 18 04/21/19 11:57 68 18 04/21/19 11:43 72 04/21/19 11:31 72 04/21/19 11:20 98.2 F 68 16 115/68 04/21/19 10:02 97.8 F 76 18 129/76 04/21/19 08:23 76 04/21/19 08:12 72 04/21/19 08:02 20 04/21/19 08:00 74 16 04/21/19 07:50 22 04/21/19 07:15 98.9 F 74 16 130/71 04/21/19 04:00 98.5 F 76 16 137/71 04/20/19 22:51 98.6 F 78 16 115/69 04/20/19 20:21 88 04/20/19 20:12 90 04/20/19 20:00 98.3 F 75 18 131/62 04/20/19 17:00 88 04/20/19 16:45 90 04/20/19 16:00 97.7 F 72 18 145/69 04/20/19 13:00 97.7 F 74 18 145/68 04/20/19 12:40 67 16 129/65 04/20/19 12:25 61 16 140/74 Pulse Ox 04/21/19 12:00 04/21/19 11:57 04/21/19 11:43 04/21/19 11:31 04/21/19 11:20 94 L 04/21/19 10:02 96 04/21/19 08:23 04/21/19 08:12 04/21/19 08:02 94 L 04/21/19 08:00 04/21/19 07:50 84 L 04/21/19 07:15 96 04/21/19 04:00 96 04/20/19 22:51 97 04/20/19 20:21 04/20/19 20:12 04/20/19 20:00 99 04/20/19 17:00 04/20/19 16:45 97 04/20/19 16:00 98 04/20/19 13:00 97 04/20/19 12:40 97 04/20/19 12:25 97 Intake and Output 04/20/19 04/21/19 04/21/19 22:59 06:59 14:59 Intake Total 1124 240 Output Total 385 410 260 Balance 517 -167 -03 Intake: Intake, IV Titration 500 Amount ACETAMINOPHEN IV (For NPO 400 ) 1,000 mg In Empty Bag 1 bag @ 400 mls/hr IVPB Q6H ITA Rx#:[id number] ceFAZolin 2 gm In Sodium 100 Chloride 0.9% 50 ml @ 100 mls/hr IVPB Q8HR ITA Rx# :[id number] Oral 624 240 Output: Drainage 60 60 60 Chest 60 60 60 Urine 325 350 200 Other: Voiding Method Indwelling Catheter Urinal # Voids 1 Weight 107 kg PHYSICAL EXAMINATION: GENERAL: The patient is alert and oriented x3, not in any acute distress. Well developed, well nourished. HEENT: Pupils are round and equally reacting to light. EOMI. No scleral icterus. No conjunctival pallor. Normocephalic, atraumatic. No pharyngeal erythema. No thyromegaly. CARDIOVASCULAR: S1 and S2 present. No murmurs, rubs, or gallops. PULMONARY: Chest is clear to auscultation, no wheezing or crackles. Left-sided chest tube with small pneumothorax ABDOMEN: Soft, nontender, nondistended, normoactive bowel sounds. No palpable organomegaly. MUSCULOSKELETAL: No joint swelling or deformity. EXTREMITIES: No cyanosis, clubbing, or pedal edema. NEUROLOGICAL: Gross neurological examination did not reveal any focal deficits. SKIN: No rashes. Results CBC & Chem 7: 04/21/19 06:12 04/21/19 06:12 Labs: Abnormal Lab Results - Last 24 Hours (Table) 04/20/19 04/20/19 04/20/19 Range/Units 12:56 13:55 13:56 WBC 14.1 H (3.8-10.6) k/uL RBC 4.19 L (4.30-5.90) m/uL Hgb (13.0-17.5) gm/dL Hct (39.0-53.0) % Sodium (137-145) mmol/L BUN (9-20) mg/dL Creatinine (0.66-1.25) mg/dL Glucose 229 H (74-99) mg/dL POC Glucose (mg/dL) 223 H (75-99) mg/dL Calcium (8.4-10.2) mg/dL 04/20/19 04/20/19 04/21/19 Range/Units 16:32 20:12 06:12 WBC (3.8-10.6) k/uL RBC 3.79 L (4.30-5.90) m/uL Hgb 11.9 L (13.0-17.5) gm/dL Hct 36.2 L (39.0-53.0) % Sodium (137-145) mmol/L BUN (9-20) mg/dL Creatinine (0.66-1.25) mg/dL Glucose (74-99) mg/dL POC Glucose (mg/dL) 231 H 181 H (75-99) mg/dL Calcium (8.4-10.2) mg/dL 04/21/19 04/21/19 04/21/19 Range/Units 06:12 06:15 11:44 WBC (3.8-10.6) k/uL RBC (4.30-5.90) m/uL Hgb (13.0-17.5) gm/dL Hct (39.0-53.0) % Sodium 134 L (137-145) mmol/L BUN 24 H (9-20) mg/dL Creatinine 1.28 H (0.66-1.25) mg/dL Glucose 159 H (74-99) mg/dL POC Glucose (mg/dL) 162 H 227 H (75-99) mg/dL Calcium 7.9 L (8.4-10.2) mg/dL Assessment and Plan Plan: -Type 2 diabetes mellitus: Patient will be an above-mentioned regimen will monitor blood sugars and the requirement of insulin depending on that will titrate the insulin while patient is here -Mild acute renal failure will hold off on hydrochlorothiazide will cut down the losartan patient probably will require IV fluids. Will discuss with the her to thoracic surgery -Leukocytosis: Secondary to surgery without any signs or symptoms of infection -Hyperlipidemia -Hypertension metoprolol will be continued will cut down the dose of losartan because of his the hyponatremia and mild elevation in reactive in -Gastroesophageal reflux disease -Benign prostatic hypertrophy, continue tamsulosin
[2019-04-21] MEDS: PANTOPRAZOLE 40 MG TABLET PO SCH (16:21)
[2019-04-21 17:12] LABS: Glucose,Whole Blood 124 mg/dL (75-99)
[2019-04-21 18:55] LABS: Glucose,Whole Blood 209 mg/dL (75-99)
[2019-04-21 20:33] LABS: Glucose,Whole Blood 242 mg/dL (75-99)
[2019-04-21] MEDS: METOPROLOL TARTRATE 25 MG TAB PO SCH (21:52)
[2019-04-21] MEDS: ATORVASTATIN 40 MG TAB PO SCH (21:52)
[2019-04-21] MEDS: INSULIN DETEMIR (LEVEMIR) 100 UNIT/ML SYR SQ SCH (21:53)
[2019-04-22] MEDS: HEPARIN SODIUM,PORCINE 5,000 UNIT/ML 1 ML VIAL SQ SCH ×3 (05:27→16:26)
[2019-04-22 05:50] LABS: Glucose,Whole Blood 160 mg/dL (75-99)
[2019-04-22] MEDS: PANTOPRAZOLE 40 MG TABLET PO SCH ×2 (06:47→17:16)
[2019-04-22] MEDS: INSULIN ASPART (NovoLOG) 100 UNIT/ML VIAL SQ SCH ×4 (06:47→21:39)
[2019-04-22 06:55] LABS: HCT 36.7 % (39.0-53.0); HGB 12.2 gm/dL (13.0-17.5); MCH 31.2 pg (25.0-35.0); MCHC 33.2 g/dL (31.0-37.0); MCV 94.2 fL (80.0-100.0); Mean Platelet Volume 9.5; Platelet Count 194 k/uL (150-450); RDW 12.5 % (11.5-15.5); WBC 9.8 k/uL (3.8-10.6)
[2019-04-22 07:04] LABS: Calcium 8.9 mg/dL (8.4-10.2); Potassium 4.2 mmol/L (3.5-5.1)
[2019-04-22] MEDS: traMADol 50 MG TAB PO SCH ×3 (07:04→17:16)
--- NOTE | 2019-04-22 07:29 | XR ---
EXAMINATION TYPE: XR chest 1V portable DATE OF EXAM: 04/22/2019 HISTORY: Postoperative left upper lobectomy. REFERENCE: Previous study dated 04/21/19. FINDINGS: A left pleural drain remains in place. No definite pneumothorax is seen. There is some biba silar atelectasis. Heart size upper limits of normal. I suspect a small left effusion. IMPRESSION: NO SIGNIFICANT INTERVAL CHANGE IN THE APPEARANCE OF THE CHEST.
[2019-04-22] MEDS ORDERED: CALCIUM CARBONATE 500 MG CHEWABLE PO PRN (08:19)
[2019-04-22] MEDS: TAMSULOSIN 0.4 MG CAP.ER.24H PO SCH (08:25)
[2019-04-22] MEDS: MULTIVITAMINS, THERA 1 EACH TAB PO SCH (08:25)
[2019-04-22] MEDS: CHOLECALCIFEROL 400 UNIT TAB PO SCH (08:25)
[2019-04-22] MEDS: METOPROLOL TARTRATE 25 MG TAB PO SCH ×2 (08:25→21:38)
[2019-04-22] MEDS: LOSARTAN 25 MG TAB PO SCH (08:25)
[2019-04-22] MEDS: ASPIRIN 81 MG PO SCH (08:26)
[2019-04-22] MEDS: IPRATROPIUM-ALBUTEROL 3 ML NEB IH SCH ×4 (08:55→20:31)
[2019-04-22] MEDS: metFORMIN 500 MG TAB PO SCH ×2 (09:58→17:16)
--- NOTE | 2019-04-22 10:21 | P.PN ---
Subjective 73-year-old gentleman came admitted for elective left upper lobectomy first, cell cancer of the lung underwent surgery patient has a left-sided chest tube which is still draining. Patient is complaining of pain in moderate pain which is controlled with pain medications. Pain increases with deep breathing. Patient had any fever chills cough. Patient denied any nausea vomiting. Patient blood sugars are fairly controlled on present regimen on long-acting insulin sliding scale insulin metformin is on hold. 04/13/2019 Patient weight sugars are bit higher patient on sliding scale insulin along with long-acting insulin patient will be resumed on metformin as his kidney function improved. We're holding on diuretic and cut down the dose of losartan. Patient blood pressures are well controlled at this time. Patient's pain is well-controlled Constitutional: Denied any fatigue denied any fever. Cardio vascular: denied any chest pain, palpitations Gastrointestinal denied any nausea vomiting Pulmonary: Denied any shortness of breath cough Neurologic denied any new focal deficits All inpatient medications were reviewed and appropriate changes in these medications as dictated in the interval history and assessment and plan. Objective - Vital Signs Vital signs: Vital Signs Temp 97.3 F L 04/22/19 08:15 Pulse 67 04/22/19 09:06 Resp 18 04/22/19 08:15 BP 149/72 04/22/19 08:15 Pulse Ox 89 L 04/22/19 08:15 Intake & Output 04/21/19 04/22/19 04/22/19 18:59 06:59 18:59 Intake Total 1800 240 240 Output Total 1865 230 75 Balance -65 10 165 Weight 106.7 kg Intake: Oral 1800 240 240 Output: Drainage 90 230 75 Chest 90 230 75 Urine 1775 Other: Voiding Method Urinal Urinal # Voids 1 - Exam PHYSICAL EXAMINATION: GENERAL: The patient is alert and oriented x3, not in any acute distress. Well developed, well nourished. HEENT: Pupils are round and equally reacting to light. EOMI. No scleral icterus. No conjunctival pallor. Normocephalic, atraumatic. No pharyngeal erythema. No thyromegaly. CARDIOVASCULAR: S1 and S2 present. No murmurs, rubs, or gallops. PULMONARY: Chest is clear to auscultation, no wheezing or crackles. Left-sided chest tube with small pneumothorax ABDOMEN: Soft, nontender, nondistended, normoactive bowel sounds. No palpable organomegaly. MUSCULOSKELETAL: No joint swelling or deformity. EXTREMITIES: No cyanosis, clubbing, or pedal edema. NEUROLOGICAL: Gross neurological examination did not reveal any focal deficits. SKIN: No rashes. - Labs CBC & Chem 7: 04/22/19 06:21 04/22/19 06:21 Labs: Abnormal Lab Results - Last 24 Hours (Table) 04/21/19 04/21/19 04/21/19 Range/Units 11:44 17:10 18:53 RBC (4.30-5.90) m/uL Hgb (13.0-17.5) gm/dL Hct (39.0-53.0) % Sodium (137-145) mmol/L Glucose (74-99) mg/dL POC Glucose (mg/dL) 227 H 124 H 209 H (75-99) mg/dL 04/21/19 04/22/19 04/22/19 Range/Units 20:30 05:49 06:21 RBC 3.90 L (4.30-5.90) m/uL Hgb 12.2 L (13.0-17.5) gm/dL Hct 36.7 L (39.0-53.0) % Sodium (137-145) mmol/L Glucose (74-99) mg/dL POC Glucose (mg/dL) 242 H 160 H (75-99) mg/dL 04/22/19 Range/Units 06:21 RBC (4.30-5.90) m/uL Hgb (13.0-17.5) gm/dL Hct (39.0-53.0) % Sodium 135 L (137-145) mmol/L Glucose 149 H (74-99) mg/dL POC Glucose (mg/dL) (75-99) mg/dL Assessment and Plan Plan: -Type 2 diabetes mellitus: Patient will be an above-mentioned regimen will monitor blood sugars and the requirement of insulin depending on that will titrate the insulin while patient is here -Mild acute renal failure will hold off on hydrochlorothiazide will cut down the losartan patient probably will require IV fluids. Will discuss with the her to thoracic surgery -Leukocytosis: Secondary to surgery without any signs or symptoms of infection -Hyperlipidemia -Hypertension metoprolol will be continued will cut down the dose of losartan because of his the hyponatremia and mild elevation in reactive in -Gastroesophageal reflux disease -Benign prostatic hypertrophy, continue tamsulosin
[2019-04-22 11:29] LABS: Glucose,Whole Blood 211 mg/dL (75-99)
--- NOTE | 2019-04-22 11:55 | P.PN ---
Subjective Progress Note Date: 04/22/19 Principal diagnosis: Squamous cell carcinoma left upper lobe. Previous medical history of tobacco dependence, asthma, coronary artery disease with myocardial infarction and multiple previous stents placed, hypertension, cardiomegaly, hyperlipidemia, type 2 diabetes mellitus, bladder cancer, and gout POD #2 robotic assisted thoracoscopic left upper lobectomy with mediastinal lymph node dissection. The patient is currently sitting up in bed in no acute distress. States his only pain is with taking deep breaths and this is controlled with current medication regimen. Has been ambulatory in the room as well as the hallway without difficulty. Remains hemodynamically stable. No new concerns. Objective - Vital Signs Vital signs: Vital Signs Temp 97.3 F L 04/22/19 08:15 Pulse 68 04/22/19 11:36 Resp 18 04/22/19 08:15 BP 149/72 04/22/19 08:15 Pulse Ox 89 L 04/22/19 08:15 Intake & Output 04/21/19 04/22/19 04/22/19 18:59 06:59 18:59 Intake Total 1800 240 240 Output Total 1865 230 875 Balance -65 10 -635 Weight 106.7 kg Intake: Oral 1800 240 240 Output: Drainage 90 230 75 Chest 90 230 75 Urine 1775 800 Other: Voiding Method Urinal Urinal # Voids 1 - Constitutional General appearance: Present: cooperative, no acute distress, obese - Respiratory Details: Lungs sounds diminished bilaterally. Respirations even, nonlabored. Currently on 2 L nasal cannula with oxygen saturation 98%. Able to achieve 1000 mL on his incentive spirometry. Left pleural chest tube present to waterseal, 75 mL serosanguineous output overnight, 400 mL in the last 24 hours, no air leak present. - Cardiovascular Details: S1, S2 present. Regular rate and rhythm, sinus rhythm on telemetry. Palpable peripheral pulses bilaterally. No edema present. No calf pain or tenderness noted. SCDs present. - Gastrointestinal Gastrointestinal Comment(s): Abdomen soft, nontender, nondistended. Active bowel sounds present 4 quadrants. Tolerating diet. - Genitourinary Genitourinary Comment(s): Continues to void - Integumentary Integumentary Comment(s): Skin is warm and dry with evidence of good perfusion - Neurologic Neurologic: Present: CNII-XII intact - Musculoskeletal Musculoskeletal: Present: gait normal, strength equal bilaterally - Psychiatric Psychiatric: Present: A&O x's 3, appropriate affect, intact judgment & insight - Allied health notes Allied health notes reviewed: nursing - Labs CBC & Chem 7: 04/22/19 06:21 04/22/19 06:21 Labs: Abnormal Lab Results - Last 24 Hours (Table) 04/21/19 04/21/19 04/21/19 Range/Units 11:44 17:10 18:53 RBC (4.30-5.90) m/uL Hgb (13.0-17.5) gm/dL Hct (39.0-53.0) % Sodium (137-145) mmol/L Glucose (74-99) mg/dL POC Glucose (mg/dL) 227 H 124 H 209 H (75-99) mg/dL 04/21/19 04/22/19 04/22/19 Range/Units 20:30 05:49 06:21 RBC 3.90 L (4.30-5.90) m/uL Hgb 12.2 L (13.0-17.5) gm/dL Hct 36.7 L (39.0-53.0) % Sodium (137-145) mmol/L Glucose (74-99) mg/dL POC Glucose (mg/dL) 242 H 160 H (75-99) mg/dL 04/22/19 04/22/19 Range/Units 06:21 11:28 RBC (4.30-5.90) m/uL Hgb (13.0-17.5) gm/dL Hct (39.0-53.0) % Sodium 135 L (137-145) mmol/L Glucose 149 H (74-99) mg/dL POC Glucose (mg/dL) 211 H (75-99) mg/dL - Imaging and Cardiology Chest x-ray: report reviewed, image reviewed Assessment and Plan Assessment: 1. Squamous cell carcinoma left upper lobe, status post robotic-assisted thoracoscopic left upper lobectomy with mediastinal lymph node dissection 2. Previous tobacco dependence 3. Asthma 4. Coronary artery disease with myocardial infarction and multiple previous stents placed 5. Hypertension 6. Hyperlipidemia 7. Cardiomegaly 8. Type 2 diabetes mellitus 9. History of bladder cancer 10. History of gout Plan: 1. Keep left pleural chest tube in place to water seal for another 24 hours, pathology pending. 2. Wean O2 as tolerated. Encourage use of his incentive spirometry every hour while awake. 3. Bronchodilators per Dr. JORJE Rasheed. 4. Encourage ambulation as tolerated. PT/OT consulted. Out of bed for all meals. 5. Will monitor daily labs and x-rays 6. Pain control per current medication regimen. 7. GI and DVT prophylaxis. 8. Medical management of other comorbidities per primary care service 9. More recommendations to follow based on patient's clinical course. Time with Patient: Greater than 30
[2019-04-22 17:09] LABS: Glucose,Whole Blood 257 mg/dL (75-99)
[2019-04-22 20:29] LABS: Glucose,Whole Blood 182 mg/dL (75-99)
[2019-04-22] MEDS: ATORVASTATIN 40 MG TAB PO SCH (21:38)
[2019-04-22] MEDS: INSULIN DETEMIR (LEVEMIR) 100 UNIT/ML SYR SQ SCH (21:38)
[2019-04-23] MEDS: HEPARIN SODIUM,PORCINE 5,000 UNIT/ML 1 ML VIAL SQ SCH ×3 (00:10→15:30)
[2019-04-23] MEDS: traMADol 50 MG TAB PO SCH ×4 (00:10→17:04)
[2019-04-23 05:49] LABS: Glucose,Whole Blood 192 mg/dL (75-99)
[2019-04-23 06:21] LABS: HCT 36.1 % (39.0-53.0); HGB 12.2 gm/dL (13.0-17.5); MCHC 33.7 g/dL (31.0-37.0); MCV 94.9 fL (80.0-100.0); Platelet Count 210 k/uL (150-450); RDW 12.5 % (11.5-15.5); WBC 10.5 k/uL (3.8-10.6)
[2019-04-23] MEDS: INSULIN ASPART (NovoLOG) 100 UNIT/ML VIAL SQ SCH ×4 (06:40→21:41)
[2019-04-23] MEDS: PANTOPRAZOLE 40 MG TABLET PO SCH ×2 (06:40→17:04)
[2019-04-23] MEDS: metFORMIN 500 MG TAB PO SCH ×2 (06:40→17:04)
--- NOTE | 2019-04-23 06:40 | XR ---
EXAMINATION TYPE: XR chest 2V DATE OF EXAM: 04/23/2019 HISTORY: post lobectomy. REFERENCE: Previous study dated 04/22/2019. FINDINGS: A left pleural drain remains in place. No definite pneumothorax is seen. There is some subc utaneous emphysema present on the left. There is atelectatic change present at the right lung base. T he heart is not enlarged. There may be a scant effusion on the left. IMPRESSION: NO SIGNIFICANT INTERVAL CHANGE IN APPEARANCE OF THE CHEST.
[2019-04-23 06:43] LABS: Calcium 8.5 mg/dL (8.4-10.2); Potassium 4.2 mmol/L (3.5-5.1)
[2019-04-23] MEDS: MULTIVITAMINS, THERA 1 EACH TAB PO SCH (07:59)
[2019-04-23] MEDS: ASPIRIN 81 MG PO SCH (07:59)
[2019-04-23] MEDS: LOSARTAN 25 MG TAB PO SCH (07:59)
[2019-04-23] MEDS: CHOLECALCIFEROL 400 UNIT TAB PO SCH (07:59)
[2019-04-23] MEDS: TAMSULOSIN 0.4 MG CAP.ER.24H PO SCH (07:59)
[2019-04-23] MEDS: METOPROLOL TARTRATE 25 MG TAB PO SCH ×2 (07:59→21:40)
[2019-04-23] MEDS: IPRATROPIUM-ALBUTEROL 3 ML NEB IH SCH ×4 (08:35→20:33)
--- NOTE | 2019-04-23 10:28 | P.PN ---
Subjective Progress Note Date: 04/23/19 Principal diagnosis: Squamous cell carcinoma left upper lobe. Previous medical history of tobacco dependence, asthma, coronary artery disease with myocardial infarction and multiple previous stents placed, hypertension, cardiomegaly, hyperlipidemia, type 2 diabetes mellitus, bladder cancer, and gout POD #3 robotic assisted thoracoscopic left upper lobectomy with mediastinal lymph node dissection. The patient is currently sitting up in bed in no acute distress. States his only pain is with taking deep breaths and this is controlled with current medication regimen. Has been ambulatory without difficulty. Remains hemodynamically stable. No new concerns. Objective - Vital Signs Vital signs: Vital Signs Temp 97.4 F L 04/23/19 03:44 Pulse 84 04/23/19 03:45 Resp 16 04/23/19 03:45 BP 142/80 04/23/19 03:44 Pulse Ox 92 L 04/23/19 03:44 Intake & Output 04/22/19 04/23/19 04/23/19 18:59 06:59 18:59 Intake Total 480 240 Output Total 935 375 40 Balance -455 -135 -40 Weight 104.1 kg Intake: Oral 480 240 Output: Drainage 135 0 40 Chest 135 0 40 Urine 800 375 Other: Voiding Method Urinal - Constitutional General appearance: Present: cooperative, no acute distress, obese - Respiratory Details: Lungs sounds diminished bilaterally. Respirations even, nonlabored. Currently on room air with oxygen saturation 92%. Able to achieve 1250 mL on his incentive spirometry. Left pleural chest tube present to waterseal, 40 mL thin serosanguineous output overnight, 350 mL in the last 24 hours, no air leak present. - Cardiovascular Details: S1, S2 present. Regular rate and rhythm, sinus rhythm on telemetry. Palpable peripheral pulses bilaterally. No edema present. No calf pain or tenderness noted. SCDs present. - Gastrointestinal Gastrointestinal Comment(s): Abdomen soft, nontender, nondistended. Active bowel sounds present 4 quadrants. Tolerating diet. - Genitourinary Genitourinary Comment(s): Continues to void - Integumentary Integumentary Comment(s): Skin is warm and dry with evidence of good perfusion - Neurologic Neurologic: Present: CNII-XII intact - Musculoskeletal Musculoskeletal: Present: gait normal, strength equal bilaterally - Psychiatric Psychiatric: Present: A&O x's 3, appropriate affect, intact judgment & insight - Allied health notes Allied health notes reviewed: nursing - Labs CBC & Chem 7: 04/23/19 06:06 04/23/19 06:06 Labs: Abnormal Lab Results - Last 24 Hours (Table) 04/22/19 04/22/19 04/22/19 Range/Units 11:28 16:56 20:25 RBC (4.30-5.90) m/uL Hgb (13.0-17.5) gm/dL Hct (39.0-53.0) % Sodium (137-145) mmol/L BUN (9-20) mg/dL Glucose (74-99) mg/dL POC Glucose (mg/dL) 211 H 257 H 182 H (75-99) mg/dL 04/23/19 04/23/19 04/23/19 Range/Units 05:47 06:06 06:06 RBC 3.80 L (4.30-5.90) m/uL Hgb 12.2 L (13.0-17.5) gm/dL Hct 36.1 L (39.0-53.0) % Sodium 136 L (137-145) mmol/L BUN 22 H (9-20) mg/dL Glucose 189 H (74-99) mg/dL POC Glucose (mg/dL) 192 H (75-99) mg/dL - Imaging and Cardiology Chest x-ray: report reviewed, image reviewed Assessment and Plan Assessment: 1. Squamous cell carcinoma left upper lobe, status post robotic-assisted thoracoscopic left upper lobectomy with mediastinal lymph node dissection, final pathology pending 2. Previous tobacco dependence 3. Asthma 4. Coronary artery disease with myocardial infarction and multiple previous stents placed 5. Hypertension 6. Hyperlipidemia 7. Cardiomegaly 8. Type 2 diabetes mellitus 9. History of bladder cancer 10. History of gout Plan: 1. Will discontinue left pleural chest tube. Repeat chest x-ray 2 hours. Will DC later today vs. tomorrow if CXR stable 2. Encourage use of his incentive spirometry every hour while awake. 3. Bronchodilators per Dr. JORJE Rasheed. Continued smoking cessation counseling provided 4. Encourage ambulation as tolerated. PT/OT following. Out of bed for all meals. 5. Will monitor daily labs and x-rays 6. Pain control per current medication regimen. 7. GI and DVT prophylaxis. 8. Medical management of other comorbidities per primary care service 9. More recommendations to follow based on patient's clinical course. Time with Patient: Greater than 30
[2019-04-23 11:52] LABS: Glucose,Whole Blood 165 mg/dL (75-99)
--- NOTE | 2019-04-23 12:11 | P.PN ---
Subjective 73-year-old gentleman came admitted for elective left upper lobectomy first, cell cancer of the lung underwent surgery patient has a left-sided chest tube which is still draining. Patient is complaining of pain in moderate pain which is controlled with pain medications. Pain increases with deep breathing. Patient had any fever chills cough. Patient denied any nausea vomiting. Patient blood sugars are fairly controlled on present regimen on long-acting insulin sliding scale insulin metformin is on hold. 04/22/2019 Patient weight sugars are bit higher patient on sliding scale insulin along with long-acting insulin patient will be resumed on metformin as his kidney function improved. We're holding on diuretic and cut down the dose of losartan. Patient blood pressures are well controlled at this time. Patient's pain is well-controlled 04/23/2019 His blood sugars are better controlled will continue the same regimen here todayPA patient's chest tube was removed Constitutional: Denied any fatigue denied any fever. Cardio vascular: denied any chest pain, palpitations Gastrointestinal denied any nausea vomiting Pulmonary: Denied any shortness of breath cough Neurologic denied any new focal deficits All inpatient medications were reviewed and appropriate changes in these medications as dictated in the interval history and assessment and plan. Objective - Vital Signs Vital signs: Vital Signs Temp 97.7 F 04/23/19 07:50 Pulse 68 04/23/19 11:28 Resp 16 04/23/19 07:50 BP 135/76 04/23/19 07:50 Pulse Ox 90 L 04/23/19 07:50 Intake & Output 04/22/19 04/23/19 04/23/19 18:59 06:59 18:59 Intake Total 480 240 660 Output Total 935 375 40 Balance -455 -135 620 Weight 104.1 kg Intake: Oral 480 240 660 Output: Drainage 135 0 40 Chest 135 0 40 Urine 800 375 Other: Voiding Method Urinal - Exam PHYSICAL EXAMINATION: GENERAL: The patient is alert and oriented x3, not in any acute distress. Well developed, well nourished. HEENT: Pupils are round and equally reacting to light. EOMI. No scleral icterus. No conjunctival pallor. Normocephalic, atraumatic. No pharyngeal erythema. No thyromegaly. CARDIOVASCULAR: S1 and S2 present. No murmurs, rubs, or gallops. PULMONARY: Chest is clear to auscultation, no wheezing or crackles. chest tube was removed ABDOMEN: Soft, nontender, nondistended, normoactive bowel sounds. No palpable organomegaly. MUSCULOSKELETAL: No joint swelling or deformity. EXTREMITIES: No cyanosis, clubbing, or pedal edema. NEUROLOGICAL: Gross neurological examination did not reveal any focal deficits. SKIN: No rashes. - Labs CBC & Chem 7: 04/23/19 06:06 04/23/19 06:06 Labs: Abnormal Lab Results - Last 24 Hours (Table) 04/22/19 04/22/19 04/23/19 Range/Units 16:56 20:25 05:47 RBC (4.30-5.90) m/uL Hgb (13.0-17.5) gm/dL Hct (39.0-53.0) % Sodium (137-145) mmol/L BUN (9-20) mg/dL Glucose (74-99) mg/dL POC Glucose (mg/dL) 257 H 182 H 192 H (75-99) mg/dL 04/23/19 04/23/19 04/23/19 Range/Units 06:06 06:06 11:42 RBC 3.80 L (4.30-5.90) m/uL Hgb 12.2 L (13.0-17.5) gm/dL Hct 36.1 L (39.0-53.0) % Sodium 136 L (137-145) mmol/L BUN 22 H (9-20) mg/dL Glucose 189 H (74-99) mg/dL POC Glucose (mg/dL) 165 H (75-99) mg/dL Assessment and Plan Plan: -Type 2 diabetes mellitus: Patient will be an above-mentioned regimen will monitor blood sugars and the requirement of insulin depending on that will titrate the insulin while patient is here -Mild acute renal failure will hold off on hydrochlorothiazide will cut down the losartan patient probably will require IV fluids. Will discuss with the her to thoracic surgery -Leukocytosis: Secondary to surgery without any signs or symptoms of infection -Hyperlipidemia -Hypertension metoprolol will be continued will cut down the dose of losartan because of his the hyponatremia and mild elevation in reactive in -Gastroesophageal reflux disease -Benign prostatic hypertrophy, continue tamsulosin
--- NOTE | 2019-04-23 14:35 | P.PN ---
Subjective Progress Note Date: 04/22/19 Principal diagnosis: Small cell carcinoma status post left upper lobectomy, COPD, coronary artery disease, hypertension hypertensive cardiovascular disease, dyslipidemia, type 2 diabetes mellitus, history of bladder cancer and gout 04/22/2019, patient seen eval examined during the rounds labs reviewed medications reviewed, patient is postop day #2 of left upper lobectomy and me diastinal lymph node dissection for us, cell cancer finding path report is pending, patient is doing I-S denies any chest pain breathing comfortably Objective - Vital Signs Vital signs: Vital Signs Temp 98 F 04/22/19 16:33 Pulse 85 04/22/19 16:33 Resp 18 04/22/19 16:33 BP 124/79 04/22/19 16:33 Pulse Ox 93 L 04/22/19 16:33 Intake & Output 04/22/19 04/22/19 04/23/19 06:59 18:59 06:59 Intake Total 240 480 Output Total 230 935 Balance 10 -455 Weight 106.7 kg Intake: Oral 240 480 Output: Drainage 230 135 Chest 230 135 Urine 800 Other: Voiding Method Urinal - Exam - Constitutional General appearance: Present: cooperative, no acute distress, obese - Respiratory Details: Lungs sounds diminished bilaterally. Respirations even, nonlabored. Currently on 2 L nasal cannula with oxygen saturation 98%. Able to achieve 1000 mL on his incentive spirometry. Left pleural chest tube present to waterseal, 75 mL serosanguineous output overnight, 400 mL in the last 24 hours, no air leak present. - Cardiovascular Details: S1, S2 present. Regular rate and rhythm, sinus rhythm on telemetry. Palpable peripheral pulses bilaterally. No edema present. No calf pain or tenderness noted. SCDs present. - Gastrointestinal Gastrointestinal Comment(s): Abdomen soft, nontender, nondistended. Active bowel sounds present 4 quadrants. Tolerating diet. - Genitourinary Genitourinary Comment(s): Continues to void - Integumentary Integumentary Comment(s): Skin is warm and dry with evidence of good perfusion - Neurologic Neurologic: Present: CNII-XII intact - Musculoskeletal Musculoskeletal: Present: gait normal, strength equal bilaterally - Psychiatric Psychiatric: Present: A&O x's 3, appropriate affect, intact judgment & insig - Labs CBC & Chem 7: 04/23/19 06:06 04/23/19 06:06 Labs: Abnormal Lab Results - Last 24 Hours (Table) 04/21/19 04/22/19 04/22/19 Range/Units 20:30 05:49 06:21 RBC 3.90 L (4.30-5.90) m/uL Hgb 12.2 L (13.0-17.5) gm/dL Hct 36.7 L (39.0-53.0) % Sodium (137-145) mmol/L Glucose (74-99) mg/dL POC Glucose (mg/dL) 242 H 160 H (75-99) mg/dL 04/22/19 04/22/19 04/22/19 Range/Units 06:21 11:28 16:56 RBC (4.30-5.90) m/uL Hgb (13.0-17.5) gm/dL Hct (39.0-53.0) % Sodium 135 L (137-145) mmol/L Glucose 149 H (74-99) mg/dL POC Glucose (mg/dL) 211 H 257 H (75-99) mg/dL Assessment and Plan Assessment: Left upper lobe squamous cell cancer status post left upper lobe resection COPD Coronary artery disease Hypertension hypertensive cardiovascular disease Type 2 diabetes mellitus Morbid obesity History of bladder cancer History of gout Plan: continue deep breathing exercises incentive spirometry Continue DVT peptic ulcer disease prophylaxis Increase activity as tolerated Time with Patient: Greater than 30
--- NOTE | 2019-04-23 14:36 | P.PN ---
Subjective Progress Note Date: 04/23/19 Principal diagnosis: Small cell carcinoma status post left upper lobectomy, COPD, coronary artery disease, hypertension hypertensive cardiovascular disease, dyslipidemia, type 2 diabetes mellitus, history of bladder cancer and gout 04/23/2019, patient seen eval examined labs reviewed medications reviewed, patient is doing well postop to mid day 3 of robotic left upper lobe resection and lymph node dissection, 04/22/2019, patient seen eval examined during the rounds labs reviewed medications reviewed, patient is postop day #2 of left upper lobectomy and mediastinal lymph node dissection for us, non-small cell cancer finding path report is pending, patient is doing I-S denies any chest pain breathing comfortably Objective - Vital Signs Vital signs: Vital Signs Temp 97.7 F 04/23/19 07:50 Pulse 68 04/23/19 11:28 Resp 16 04/23/19 07:50 BP 135/76 04/23/19 07:50 Pulse Ox 90 L 04/23/19 07:50 Intake & Output 04/22/19 04/23/19 04/23/19 18:59 06:59 18:59 Intake Total 480 240 660 Output Total 935 375 40 Balance -455 -135 620 Weight 104.1 kg Intake: Oral 480 240 660 Output: Drainage 135 0 40 Chest 135 0 40 Urine 800 375 Other: Voiding Method Urinal # Bowel Movements 0 - Exam - Constitutional General appearance: Present: cooperative, no acute distress, obese - Respiratory Details: Lungs sounds diminished bilaterally. Respirations even, nonlabored. Currently on 2 L nasal cannula with oxygen saturation 98%. Able to achieve 1000 mL on his incentive spirometry. Left pleural chest tube present to waterseal, 75 mL serosanguineous output overnight, 400 mL in the last 24 hours, no air leak present. - Cardiovascular Details: S1, S2 present. Regular rate and rhythm, sinus rhythm on telemetry. Palpable peripheral pulses bilaterally. No edema present. No calf pain or tenderness noted. SCDs present. - Gastrointestinal Gastrointestinal Comment(s): Abdomen soft, nontender, nondistended. Active bowel sounds present 4 quadrants. Tolerating diet. - Genitourinary Genitourinary Comment(s): Continues to void - Integumentary Integumentary Comment(s): Skin is warm and dry with evidence of good perfusion - Neurologic Neurologic: Present: CNII-XII intact - Musculoskeletal Musculoskeletal: Present: gait normal, strength equal bilaterally - Psychiatric Psychiatric: Present: A&O x's 3, appropriate affect, intact judgment & insig - Labs CBC & Chem 7: 04/23/19 06:06 04/23/19 06:06 Labs: Abnormal Lab Results - Last 24 Hours (Table) 04/22/19 04/22/19 04/23/19 Range/Units 16:56 20:25 05:47 RBC (4.30-5.90) m/uL Hgb (13.0-17.5) gm/dL Hct (39.0-53.0) % Sodium (137-145) mmol/L BUN (9-20) mg/dL Glucose (74-99) mg/dL POC Glucose (mg/dL) 257 H 182 H 192 H (75-99) mg/dL 04/23/19 04/23/19 04/23/19 Range/Units 06:06 06:06 11:42 RBC 3.80 L (4.30-5.90) m/uL Hgb 12.2 L (13.0-17.5) gm/dL Hct 36.1 L (39.0-53.0) % Sodium 136 L (137-145) mmol/L BUN 22 H (9-20) mg/dL Glucose 189 H (74-99) mg/dL POC Glucose (mg/dL) 165 H (75-99) mg/dL Assessment and Plan Assessment: Left upper lobe squamous cell cancer status post left upper lobe resection COPD Coronary artery disease Hypertension hypertensive cardiovascular disease Type 2 diabetes mellitus Morbid obesity History of bladder cancer History of gout Plan: continue deep breathing exercises incentive spirometry Continue DVT peptic ulcer disease prophylaxis Increase activity as tolerated Time with Patient: Greater than 30
[2019-04-23 16:48] LABS: Glucose,Whole Blood 193 mg/dL (75-99)
[2019-04-23 20:28] LABS: Glucose,Whole Blood 165 mg/dL (75-99)
[2019-04-23] MEDS: INSULIN DETEMIR (LEVEMIR) 100 UNIT/ML SYR SQ SCH (21:41)
[2019-04-23] MEDS: ATORVASTATIN 40 MG TAB PO SCH (21:41)
[2019-04-24] MEDS: traMADol 50 MG TAB PO SCH ×2 (01:07→05:15)
[2019-04-24] MEDS: HEPARIN SODIUM,PORCINE 5,000 UNIT/ML 1 ML VIAL SQ SCH ×2 (01:07→08:30)
[2019-04-24 04:23] VITALS: TEMP 97.4
[2019-04-24 06:09] LABS: Glucose,Whole Blood 144 mg/dL (75-99)
[2019-04-24] MEDS ORDERED: traMADol 50 MG TAB PO PRN (06:40)
[2019-04-24] MEDS: INSULIN ASPART (NovoLOG) 100 UNIT/ML VIAL SQ SCH (06:45)
[2019-04-24] MEDS: metFORMIN 500 MG TAB PO SCH (06:46)
[2019-04-24] MEDS: PANTOPRAZOLE 40 MG TABLET PO SCH (06:46)
--- NOTE | 2019-04-24 07:13 | XR ---
EXAMINATION TYPE: XR chest 2V DATE OF EXAM: 04/24/2019 COMPARISON: 04/22/2019 HISTORY: Post lobectomy TECHNIQUE: Frontal and lateral views of the chest are obtained. FINDINGS: Left thoracostomy tube has been removed in the interim. There is a trace left pleural effu mya now seen with only 4 mm maximum pleural separation. Improving subcutaneous emphysema in the left supraclavicular region. Trace left pleural effusion has nearly resolved. Improved atelectasis at the right lung base. Stable cardiomediastinal silhouette. Diffuse osseous demineralization. IMPRESSION: Removal of the thoracostomy tube with trace residual left pneumothorax. Improved right b asilar atelectasis and trace left pleural effusion.
[2019-04-24] MEDS: IPRATROPIUM-ALBUTEROL 3 ML NEB IH SCH (08:23)
[2019-04-24] MEDS: MULTIVITAMINS, THERA 1 EACH TAB PO SCH (08:31)
[2019-04-24] MEDS: TAMSULOSIN 0.4 MG CAP.ER.24H PO SCH (08:31)
[2019-04-24] MEDS: METOPROLOL TARTRATE 25 MG TAB PO SCH (08:31)
[2019-04-24] MEDS: ASPIRIN 81 MG PO SCH (08:31)
[2019-04-24] MEDS: LOSARTAN 25 MG TAB PO SCH (08:31)
[2019-04-24] MEDS: CHOLECALCIFEROL 400 UNIT TAB PO SCH (08:31)
--- NOTE | 2019-04-24 09:04 | P.PN ---
Subjective Progress Note Date: 04/24/19 Principal diagnosis: Squamous cell carcinoma left upper lobe. Previous medical history of tobacco dependence, asthma, coronary artery disease with myocardial infarction and multiple previous stents placed, hypertension, cardiomegaly, hyperlipidemia, type 2 diabetes mellitus, bladder cancer, and gout POD #4 robotic assisted thoracoscopic left upper lobectomy with mediastinal lymph node dissection. The patient is currently sitting up in bed in no acute distress. States his pain is significantly better since removal of chest tube yesterday, denies shortness of breath. Has been ambulatory without difficulty. Remains hemodynamically stable. No new concerns. Objective - Vital Signs Vital signs: Vital Signs Temp 97.4 F L 04/24/19 04:00 Pulse 84 04/24/19 08:35 Resp 16 04/24/19 04:00 BP 135/66 04/24/19 04:00 Pulse Ox 90 L 04/24/19 08:26 Intake & Output 04/23/19 04/24/19 04/24/19 18:59 06:59 18:59 Intake Total 1080 120 Output Total 40 325 Balance 1040 -325 120 Weight 104.4 kg Intake: Oral 1080 120 Output: Drainage 40 0 Chest 40 0 Urine 325 Other: Voiding Method Urinal # Bowel Movements 0 0 - Constitutional General appearance: Present: cooperative, no acute distress, obese - Respiratory Details: Lungs sounds diminished bilaterally. Respirations even, nonlabored. Currently on room air with oxygen saturation 93%. Able to achieve 1000 mL on his incentive spirometry. Strong cough - Cardiovascular Details: S1, S2 present. Regular rate and rhythm, sinus rhythm on telemetry. Palpable peripheral pulses bilaterally. No edema present. No calf pain or tenderness noted. SCDs present. - Gastrointestinal Gastrointestinal Comment(s): Abdomen soft, nontender, nondistended. Active bowel sounds present 4 quadrants. Tolerating diet. - Genitourinary Genitourinary Comment(s): Continues to void - Integumentary Integumentary Comment(s): Skin is warm and dry with evidence of good perfusion - Neurologic Neurologic: Present: CNII-XII intact - Musculoskeletal Musculoskeletal: Present: gait normal, strength equal bilaterally - Psychiatric Psychiatric: Present: A&O x's 3, appropriate affect, intact judgment & insight - Allied health notes Allied health notes reviewed: nursing - Labs CBC & Chem 7: 04/23/19 06:06 04/23/19 06:06 Labs: Abnormal Lab Results - Last 24 Hours (Table) 04/23/19 04/23/19 04/23/19 Range/Units 11:42 16:41 20:26 POC Glucose (mg/dL) 165 H 193 H 165 H (75-99) mg/dL 04/24/19 Range/Units 06:07 POC Glucose (mg/dL) 144 H (75-99) mg/dL - Imaging and Cardiology Chest x-ray: report reviewed, image reviewed Assessment and Plan Assessment: 1. Squamous cell carcinoma left upper lobe, status post robotic-assisted thoracoscopic left upper lobectomy with mediastinal lymph node dissection, final pathology pending 2. Previous tobacco dependence 3. Asthma 4. Coronary artery disease with myocardial infarction and multiple previous stents placed 5. Hypertension 6. Hyperlipidemia 7. Cardiomegaly 8. Type 2 diabetes mellitus 9. History of bladder cancer 10. History of gout Plan: 1. Repeat chest x-ray from this morning stable. Will discharge patient to home 2. Encourage use of his incentive spirometry every hour while awake. 3. Bronchodilators per Dr. JORJE Rasheed. Continued smoking cessation counseling provided 4. Encourage ambulation as tolerated. 5. Pain control per current medication regimen. 6. Will discharge patient to home. Follow-up appointments have been made. Patient was instructed on lifting restrictions, pain control. Given contact numbers for superintendent [employer] communications for any questions Time with Patient: Greater than 30
--- NOTE | 2019-04-24 10:57 | P.PN ---
Subjective 73-year-old gentleman came admitted for elective left upper lobectomy first, cell cancer of the lung underwent surgery patient has a left-sided chest tube which is still draining. Patient is complaining of pain in moderate pain which is controlled with pain medications. Pain increases with deep breathing. Patient had any fever chills cough. Patient denied any nausea vomiting. Patient blood sugars are fairly controlled on present regimen on long-acting insulin sliding scale insulin metformin is on hold. 04/22/2019 Patient weight sugars are bit higher patient on sliding scale insulin along with long-acting insulin patient will be resumed on metformin as his kidney function improved. We're holding on diuretic and cut down the dose of losartan. Patient blood pressures are well controlled at this time. Patient's pain is well-controlled 04/23/2019 His blood sugars are better controlled will continue the same regimen here todayPA patient's chest tube was removed 04/24/2019 No overnight events patient blood sugars are well controlled his drain was removed no changes in medications are being made from my perspective patient pro bably will be discharged today . Constitutional: Denied any fatigue denied any fever. Cardio vascular: denied any chest pain, palpitations Gastrointestinal denied any nausea vomiting Pulmonary: Denied any shortness of breath cough Neurologic denied any new focal deficits All inpatient medications were reviewed and appropriate changes in these medications as dictated in the interval history and assessment and plan. Objective - Vital Signs Vital signs: Vital Signs Temp 97.4 F L 04/24/19 04:00 Pulse 84 04/24/19 08:35 Resp 16 04/24/19 04:00 BP 135/66 04/24/19 04:00 Pulse Ox 90 L 04/24/19 08:26 Intake & Output 04/23/19 04/24/19 04/24/19 18:59 06:59 18:59 Intake Total 1080 120 Output Total 40 325 Balance 1040 -325 120 Weight 104.4 kg Intake: Oral 1080 120 Output: Drainage 40 0 Chest 40 0 Urine 325 Other: Voiding Method Urinal # Bowel Movements 0 0 - Exam PHYSICAL EXAMINATION: GENERAL: The patient is alert and oriented x3, not in any acute distress. Well developed, well nourished. HEENT: Pupils are round and equally reacting to light. EOMI. No scleral icterus. No conjunctival pallor. Normocephalic, atraumatic. No pharyngeal erythema. No thyromegaly. CARDIOVASCULAR: S1 and S2 present. No murmurs, rubs, or gallops. PULMONARY: Chest is clear to auscultation, no wheezing or crackles. chest tube was removed ABDOMEN: Soft, nontender, nondistended, normoactive bowel sounds. No palpable organomegaly. MUSCULOSKELETAL: No joint swelling or deformity. EXTREMITIES: No cyanosis, clubbing, or pedal edema. NEUROLOGICAL: Gross neurological examination did not reveal any focal deficits. SKIN: No rashes. - Labs CBC & Chem 7: 04/23/19 06:06 04/23/19 06:06 Labs: Abnormal Lab Results - Last 24 Hours (Table) 04/23/19 04/23/19 04/23/19 Range/Units 11:42 16:41 20:26 POC Glucose (mg/dL) 165 H 193 H 165 H (75-99) mg/dL 04/24/19 Range/Units 06:07 POC Glucose (mg/dL) 144 H (75-99) mg/dL Assessment and Plan Plan: -Type 2 diabetes mellitus: patient blood sugars are well controlled just with home regimen which she will continue at home -Mild acute renal failure secondary to prerenal azotemia which improved -Leukocytosis: Secondary to surgery without any signs or symptoms of infection -Hyperlipidemia -Hypertension patient will resume on his home regimen with his basic metabolic profile need to be tested in about 3 days he starts becoming hyponatremic at that time to take many to be discontinued -Gastroesophageal reflux disease -Benign prostatic hypertrophy, continue tamsulosin
--- NOTE | 2019-04-24 11:04 | P.DS ---
Providers Date of admission: 04/20/19 05:59 Expected date of discharge: 04/24/19 Attending physician: Juancarlos Palafox Consults: 04/20/19 13:11 Consult Physician Routine Consulting Provider: Saige Branham Consult Reason/Comments: Medica/ Diabetes Management Do you want consulting provider notified?: Yes Consult Physician Routine Consulting Provider: Jf Rasheed Consult Reason/Comments: Pulmonary management Do you want consulting provider notified?: Yes Primary care physician: Duane Lockhart Hospital Course: FINAL DIAGNOSIS: 1. Squamous cell carcinoma left upper lobe, final pathology pending 2. Previous tobacco dependence 3. Asthma 4. Coronary artery disease with myocardial infarction and multiple previous stents placed 5. Hypertension 6. Hyperlipidemia 7. Cardiomegaly 8. Type 2 diabetes 9. History of bladder cancer 10. History of gout PRINCIPAL PROCEDURE: 1. Robotic-assisted thoracoscopic left upper lobectomy with mediastinal lymph node dissection HISTORY OF PRESENT ILLNESS: This is a 73-year-old gentleman who follows on an outpatient basis with Dr. Duane Lockhart and Dr. JORJE Rasheed. He had a low dose screening CT of the chest secondary to his tobacco history even though he remained asymptomatic. This CT demonstrated a small left upper lobe nodule. Follow-up CT was performed several months later with evidence that the nodule had grown in size. He underwent PET scan which was mildly positive with SUV uptake of 2.1, without evidence of mediastinal adenopathy. Subsequently the patient underwent needle biopsy which was positive for squamous cell carcinoma. The patient was referred to Dr. Palafox from cardiothoracic surgery. He was recommended to undergo robotic-assisted left upper lobectomy with mediastinal lymph node dissection. The usual perioperative course was discussed in detail with the patient and his family, all risks and benefits were explained, all questions were answered, and consent was obtained to proceed with surgery. The patient was scheduled for surgery at the earliest possible date after cardiac clearance was obtained. HOSPITAL COURSE: The patient was brought to the hospital on 04/20/2019, taken to the preoperative area, prepared in the usual fashion, and subsequently taken to the operating room where Dr. Palafox performed a robotic-assisted thoracoscopic left upper lobectomy with mediastinal lymph node dissection. Upon completion of surgery the patient was extubated and recovered, and eventually admitted to 3 S. cardiac stepdown unit for further monitoring and rehabilitation. His left pleural chest tube was placed to waterseal, drainage continued to decrease, he had no air leak and his chest x-ray was stable. Left pleural chest tube was discontinued on postoperative day #3. Repeat chest x-ray remained stable. His oxygen was titrated down, he continued to work with physical and occupational therapy, he was tolerating oral diet, his pain was controlled, and he was ready to be discharged to home on postoperative day #4. He received written and verbal instruction regarding his medications, activity restrictions, signs and symptoms requiring physician notification, and follow-up appointments. COMPLICATIONS: The patient experienced no postoperative complications. Patient Condition at Discharge: Stable Plan - Discharge Summary Discharge Rx Participant: Yes New Discharge Prescriptions: New Acetaminophen Tab [Tylenol] 1,000 mg PO Q6HR PRN tab PRN Reason: Fever And/ Or Pain Continue metFORMIN HCL 1,000 mg PO BID Aspirin EC [Ecotrin Low Dose] 81 mg PO DAILY Atorvastatin [Lipitor] 40 mg PO HS Metoprolol Succinate [Toprol XL] 25 mg PO DAILY Insulin Detemir (Levemir) [Levemir] 40 unit SQ HS Tamsulosin HCl [Flomax] 0.4 mg PO DAILY Cholecalciferol [Vitamin D3] 400 unit PO DAILY Multivitamins, Thera [Multivitamin (formulary)] 1 tab PO DAILY Montelukast [Singulair] 10 mg PO DAILY PRN PRN Reason: allergies Omeprazole [PriLOSEC] 40 mg PO DAILY PRN PRN Reason: Gi Upset Losartan/Hydrochlorothiazide [Hyzaar 50-12.5 Tablet] 1 tab PO DAILY Barley Powder Pill 1 tab PO BID Cannabidiol (Cbd) Extract [Epidiolex] 1 dose TOPICAL DAILY PRN PRN Reason: Pain Discontinued Acetaminophen Tab [Tylenol] 500 mg PO DIRECTED PRN PRN Reason: Pain Discharge Medication List Aspirin EC [Ecotrin Low Dose] 81 mg PO DAILY 01/10/14 [History] Atorvastatin [Lipitor] 40 mg PO HS 01/10/14 [History] Metoprolol Succinate [Toprol XL] 25 mg PO DAILY 01/10/14 [History] metFORMIN HCL 1,000 mg PO BID 01/10/14 [History] Insulin Detemir (Levemir) [Levemir] 40 unit SQ HS 10/03/18 [History] Tamsulosin HCl [Flomax] 0.4 mg PO DAILY 10/03/18 [History] Cholecalciferol [Vitamin D3] 400 unit PO DAILY 10/21/18 [History] Multivitamins, Thera [Multivitamin (formulary)] 1 tab PO DAILY 10/21/18 [History] Montelukast [Singulair] 10 mg PO DAILY PRN 01/24/19 [History] Barley Powder Pill 1 tab PO BID 04/13/19 [History] Cannabidiol (Cbd) Extract [Epidiolex] 1 dose TOPICAL DAILY PRN 04/13/19 [History] Losartan/Hydrochlorothiazide [Hyzaar 50-12.5 Tablet] 1 tab PO DAILY 04/13/19 [History] Omeprazole [PriLOSEC] 40 mg PO DAILY PRN 04/13/19 [History] Acetaminophen Tab [Tylenol] 1,000 mg PO Q6HR PRN tab 04/24/19 [Rx] Follow up Appointment(s)/Referral(s): Juancarlos Palafox MD [STAFF PHYSICIAN] - 05/04/19 1:00 pm Jf Rasheed MD [STAFF PHYSICIAN] - 04/27/19 3:00 pm (In [place].) Duane Lockhart DO [Primary Care Provider] - 1 Week (Please follow up with your primary physician after being discharged from the hospital.) Patient Instructions/Handouts: How to Use an Incentive Spirometer (DC), Lung Lobectomy (DC), Video Assisted Thoracoscopic Surgery (DC) Activity/Diet/Wound Care/Special Instructions: DISCHARGE INSTRUCTIONS: 1. No driving for 2 weeks, or until physician gives their ok. 2. No lifting, pushing, or pulling more than 10 pounds for 2 weeks. The physician will advise of any restriction changes. 3. Continue pain control per as needed orders. Alternate acetaminophen (Tylenol) and ibuprofen (Motrin/Advil) for pain. 4. Continue with incentive spirometry and splinting until otherwise directed by the physician. 5. Leave chest tube dressing for 48 hours. After that, remove all dressings and shower daily. 6. Routine incision care. No powders, lotions, ointments on incisions. 7. Please call surgeon/BOILER RELINER for temp greater than 101 F or purulent drainage from incisions. 8. Continued smoking cessation counseling provided. For any questions or concerns please contact Bia Bloom at [phone] or done at [phone] Discharge Disposition: HOME SELF-CARE
[2019-04-24 13:21] VITALS: BP 130/60; PULSE 81; RESP 18
== END 2019-04-24 11:31 | disposition home or self-care (01) | DRG 164 ==
LOC: 2ORMAIN 05:59 → 3SCARD 11:45
PROVIDERS: ADMIT Thoracic Surgery (Cardiothoracic Vascular Surgery); ATTEND Thoracic Surgery (Cardiothoracic Vascular Surgery)
PROC: 07B74ZZ Excision of Thorax Lymphatic, Percutaneous Endoscopic Approach (ICD-10-PCS; 2019-04-20)
PROC: 8E0W4CZ Robotic Assisted Procedure of Trunk Region, Percutaneous Endoscopic Approach (ICD-10-PCS; 2019-04-20)
PROC: 0BTG4ZZ Resection of Left Upper Lung Lobe, Percutaneous Endoscopic Approach (ICD-10-PCS; principal; 2019-04-20 07:30)
DX: C34.12 Malignant neoplasm of upper lobe, left bronchus or lung (principal); N17.9 Acute kidney failure, unspecified; J93.9 Pneumothorax, unspecified; E87.1 Hypo-osmolality and hyponatremia; I11.9 Hypertensive heart disease without heart failure; M10.9 Gout, unspecified; E11.9 Type 2 diabetes mellitus without complications; I25.10 Atherosclerotic heart disease of native coronary artery without angina pectoris; E78.5 Hyperlipidemia, unspecified; K21.9 Gastro-esophageal reflux disease without esophagitis; N40.0 Benign prostatic hyperplasia without lower urinary tract symptoms; D72.829 Elevated white blood cell count, unspecified; J44.9 Chronic obstructive pulmonary disease, unspecified; E66.01 Morbid (severe) obesity due to excess calories; I25.2 Old myocardial infarction; Z68.33 Body mass index [BMI] 33.0-33.9, adult; Z79.82 Long term (current) use of aspirin; Z79.4 Long term (current) use of insulin; Z79.899 Other long term (current) drug therapy; Z85.51 Personal history of malignant neoplasm of bladder; Z96.653 Presence of artificial knee joint, bilateral; Z95.5 Presence of coronary angioplasty implant and graft; Z98.42 Cataract extraction status, left eye; Z98.41 Cataract extraction status, right eye; Z87.891 Personal history of nicotine dependence; Z86.69 Personal history of other diseases of the nervous system and sense organs; Z92.21 Personal history of antineoplastic chemotherapy; Z98.890 Other specified postprocedural states; Z98.1 Arthrodesis status; Z80.9 Family history of malignant neoplasm, unspecified
CPT/HCPCS: 71045; 71046; 80048; 85025; 85027; 86850; 86900; 86901; 88305; 88309; 88313; 88331; 88332; 88341; 88342; 94640; 94760

== ENCOUNTER → 2020-08-29 | Outpatient (CLI) | payer MEDICARE ==
[2020-08-29 14:38] LABS: Basophils # (A) 0.06 X 10*3/uL (0.00-0.10); Basophils % (A) 0.7 %; Eosinophils # (A) 0.28 X 10*3/uL (0.04-0.35); Eosinophils % (A) 3.4 %; HCT 39.9 % (39.6-50.0); Lymphocytes # (A) 2.08 X 10*3/uL (0.90-5.00); Lymphocytes % (A) 25.6 %; MCH 31.3 pg (27.0-32.0); MCHC 32.6 g/dL (32.0-37.0); MCV 96.1 fL (80.0-97.0); Mean Platelet Volume 11.4 fL (9.5-12.2); Monocytes # (A) 0.76 X 10*3/uL (0.20-1.00); Monocytes % (A) 9.4 %; Neutrophils # (A) 4.91 X 10*3/uL (1.80-7.70); Neutrophils % (A) 60.5 %; Platelet Count 187 X 10*3/uL (140-440); RBC 4.15 X 10*6/uL (4.40-5.60); WBC 8.12 X 10*3/uL (4.50-10.00)
[2020-08-29 15:25] LABS: African American GFR (CKD) 76.8 (60.0-200.0); Anion Gap 7.4 mmol/L (4.00-12.00); BUN/Creat Ratio 22.73 Ratio (12.00-20.00); Calcium 8.7 mg/dL (8.7-10.3); Carbon Dioxide 24.6 mmol/L (21.6-31.8); Non-African American GFR(CKD) 66.2 (60.0-200.0); Potassium 4.6 mmol/L (3.5-5.5)
== END | disposition home or self-care (01) ==
LOC: LABWHC1 09:56
PROVIDERS: ATTEND Urology
DX: C67.9 Malignant neoplasm of bladder, unspecified (principal)
CPT/HCPCS: 36415; 80048; 85025

== ENCOUNTER → 2021-02-17 | Outpatient (CLI) | payer MEDICARE ==
[2021-02-17 11:01] LABS: Basophils # (A) 0.1 k/uL (0-0.2); Basophils % (A) 1 %; Eosinophils # (A) 0.2 k/uL (0-0.7); Eosinophils % (A) 3 %; HCT 44.8 % (39.0-53.0); Lymphocytes # (A) 1.7 k/uL (1.0-4.8); Lymphocytes % (A) 20 %; MCH 31.8 pg (25.0-35.0); MCHC 31.2 g/dL (31.0-37.0); MCV 101.7 fL (80.0-100.0); Macrocytosis Slight; Mean Platelet Volume 8.5; Monocytes # (A) 0.4 k/uL (0-1.0); Monocytes % (A) 4 %; Neutrophils % (A) 71 %; Platelet Count 239 k/uL (150-450); RDW 14.4 % (11.5-15.5); WBC 8.4 k/uL (3.8-10.6)
[2021-02-17 11:09] LABS: Albumin 3.9 g/dL (3.5-5.0); Calcium 9.2 mg/dL (8.4-10.2); Potassium 5.2 mmol/L (3.5-5.1); Total Bilirubin 0.4 mg/dL (0.2-1.3)
--- NOTE | 2021-02-17 11:56 | CT ---
EXAMINATION TYPE: CT chest w con DATE OF EXAM: 02/17/2021 COMPARISON: 12/15/2018 HISTORY: follow up lung cancer CT DLP: 510.2 mGycm Automated exposure control for dose reduction was used. CONTRAST: CT scan of the chest is performed with IV Contrast, patient injected with 100 mL of Isovue 300. FINDINGS: LUNGS: The lungs are grossly clear, there is no concerning parenchymal mass or nodule identified. T here is no pleural effusion or pneumothorax seen. The tracheobronchial tree is patent. Scattered sub pleural fibrosis noted. MEDIASTINUM: There are no greater than 1 cm hilar or mediastinal lymph nodes. No pericardial effusi on is seen. Thoracic aorta is of normal caliber. The heart is not enlarged. UPPER ABDOMEN: No significant abnormality appreciated. OTHER: No additional significant abnormality is seen. IMPRESSION: No evidence for residual or recurrent mass at this time. Scattered subpleural fibrosis superimposed u prabha COPD.
== END | disposition home or self-care (01) ==
LOC: RADCTMAIN 10:17
PROVIDERS: ATTEND Internal Medicine Hematology & Oncology
DX: J44.9 Chronic obstructive pulmonary disease, unspecified (principal); J84.10 Pulmonary fibrosis, unspecified; Z85.118 Personal history of other malignant neoplasm of bronchus and lung
CPT/HCPCS: 80053; 85025; 71260; 36415; Q9967

== ENCOUNTER → 2021-09-10 | Outpatient (CLI) | payer MEDICARE ==
--- NOTE | 2021-09-10 22:33 | CT ---
EXAMINATION TYPE: CT urogram wo/w con CT DLP: 4485.1 mGycm, Automated exposure control for dose reduction was used. DATE OF EXAM: 09/10/2021 5:04 PM COMPARISON: None CLINICAL INDICATION:Male, 75 years old with history of C67.9 bladder ca, bladder ca. hx of bladder sx 9x TECHNIQUE: Urogram with imaging of the abdomen and pelvis. Coronal and sagittal reformats were performed. One or more CT dose reduction strategies were utilized during this examination. 2D and 3D reconstructions a re performed to assist visualization of the urinary tract on a separate workstation. Contrast used:80 mL of Isovue 300 with IV Contrast, Oral contrast used: None FINDINGS: GENITOURINARY: RIGHT KIDNEY AND URETER: No calculi. No hydronephrosis or hydroureter. No renal mass or other lesions . No urothelial lesions: no filling defect, dilation, stricture or wall thickening. LEFT KIDNEY AND URETER: No calculi. No hydronephrosis or hydroureter. No renal mass or other lesions. No urothelial lesions: no filling defect, dilation, stricture or wall thickening. URINARY BLADDER: Right posterior superior bladder diverticulum, no calculi, mass or other lesions. REPRODUCTIVE: Unremarkable. ABDOMEN LIVER: Hepatic cysts in the left lobe.. GALLBLADDER AND BILE DUCTS: Unremarkable PANCREAS: Unremarkable. SPLEEN: Unremarkable. ADRENAL GLANDS: Unremarkable. STOMACH AND BOWEL: Scattered clonic diverticula are present. No evidence of bowel obstruction. Append ix is normal PERITONEUM: No evidence of pneumoperitoneum, free fluid, or adenopathy. VASCULATURE: Atherosclerotic calcifications are present throughout the abdominal aorta and its branch es. MUSCULOSKELETAL: Multilevel degenerative changes are present throughout the thoracolumbar spine. Left iliac bone bone island. SOFT TISSUE/ABDOMINAL WALL: Right lower abdominal subcutaneous suspected sebaceous cyst measuring up to 2.8 cm. Small fat-containing umbilical hernia. LOWER CHEST: Coronary artery atherosclerosis as well as aortic valve leaflet calcifications are prese nt. IMPRESSION: 1. No evidence of urolithiasis or renal/urothelial neoplasm. 2. Right posterior bladder diverticulum. 3. Colonic diverticulosis.
== END | disposition home or self-care (01) ==
LOC: RADCTMAIN 13:25
PROVIDERS: ATTEND Urology
DX: C67.9 Malignant neoplasm of bladder, unspecified (principal); K57.30 Diverticulosis of large intestine without perforation or abscess without bleeding
CPT/HCPCS: 82565; 84520; 74178; 36415; 74400; Q9967

== ENCOUNTER → 2022-11-12 | Outpatient (CLI) | payer MEDICARE ==
[2022-11-12 09:48] LABS: African American GFR (CKD) 62 (>60 ml/min/1.73 sqM); Blood Urea Nitrogen 32 mg/dL (9-20); Non-African American GFR(CKD) 54 (>60 ml/min/1.73 sqM)
--- NOTE | 2022-11-12 11:39 | CT ---
EXAMINATION: CT UROGRAM WITHOUT AND WITH IV CONTRAST DATE OF EXAMINATION: 11/12/2022. COMPARISON: 09/10/2021. INDICATION: Bladder cancer. PROCEDURE: Axial CT of the abdomen and pelvis was performed with sagittal and coronal reformatted i mages without contrast enhancement. CT dose lowering techniques were used, to include: automated expo sure control, adjustment for patient size, and/or use of iterative reconstruction. The exam is limite d because some types of pathology may not be adequately demonstrated due to lack of contrast enhancem ent. FINDINGS: LOWER CHEST : The visualized lung bases are clear. There are no pleural or pericardial effusions. ABDOMEN: Liver and Biliary system: There is a subcentimeter hypodensity in the left lobe of liver that is too small for characterize. The liver otherwise appears unremarkable. Adrenal glands: Normal. Kidneys and ureters: There are areas of cortical thinning seen throughout the right kidney which are compatible with scarring. There are no renal stones, ureteral stones or hydronephrosis. No suspiciou s renal lesions are identified. Spleen: Normal. Pancreas: Normal. Gallbladder: Normal. Lymph nodes, Peritoneum and mesentery: There is no mesenteric or retroperitoneal lymphadenopathy. Gastrointestinal tract: There are no dilated loops of bowel or free intraperitoneal air. . The appe ndix is normal. There is mild to moderate descending colonic and sigmoid colonic diverticulosis witho ut evidence of diverticulitis. Aorta/IVC: There is significant vascular calcification throughout the abdominal aorta without evide nce of aneurysmal dilation or dissection. IVC normal. Abdominal wall: Normal. PELVIS: Fluid: There is no free fluid in the pelvis. Lymph Nodes: There is no pelvic or inguinal lymphadenopathy.. Urinary bladder: No gross bladder masses seen.. BONES: Scattered degenerative disc changes are seen throughout the spine. There are no acute osseous abnormalities the body 03/27/2021. Osteoporosis first carpometacarpal joint space. Joint spaces otherw ise appear. ADDITIONAL SIGNIFICANT FINDINGS: None. IMPRESSION: 1. No suspicious renal, urinary tract or bladder lesions identified. 2. No renal stones or hydronephrosis. 3. Right renal scarring. 4. Diverticulosis without evidence of diverticulitis.
== END | disposition home or self-care (01) ==
LOC: RADCTMAIN 08:40
PROVIDERS: ATTEND Urology
DX: C67.9 Malignant neoplasm of bladder, unspecified (principal); N28.89 Other specified disorders of kidney and ureter; K57.30 Diverticulosis of large intestine without perforation or abscess without bleeding
CPT/HCPCS: 82565; 84520; 74178; 36415; 74400; Q9967

== ENCOUNTER 2023-09-20 03:19 | Observation (INO) | payer MEDICARE ==
--- NOTE | 2023-09-20 04:29 | ED ---
General Adult HPI - General Chief complaint: Recheck/Abnormal Lab/Rx Stated complaint: Neck injury Time Seen by Provider: 09/20/23 03:30 Source: patient Mode of arrival: EMS Limitations: no limitations - History of Present Illness Initial comments: Patient is a 77-year-old man who arrives here as transfer from [facility]. The patient reportedly was taken to the other facility by ambulance to have evaluation of generalized weakness and confusion. It is reported that the patient also had a number of recent ground-level falls. It was reported that at the other facility patient found to have urinary tract infection with leukocytosis (13.35K) and elevated lactic acid (2.2). The patient did receive antibiotic treatment for sepsis and was transferred here because the patient had CT scan showing possible C3 fracture. The patient does have C3-C4 fusion. When I interviewed the patient, he denies any neck pain. Onset/Timin -: days(s) Severity scale (1-10): 0 Improves with: none Worsens with: none Associated Symptoms: denies other symptoms, weakness Treatments Prior to Arrival: other (Good,) - Related Data Home Medications Medication Instructions Recorded Confirmed Aspirin EC [Ecotrin Low Dose] 81 mg PO DAILY 01/10/14 04/13/19 Atorvastatin [Lipitor] 40 mg PO HS 01/10/14 04/13/19 Metoprolol Succinate [Toprol XL] 25 mg PO DAILY 01/10/14 04/13/19 metFORMIN HCL [Glucophage] 1,000 mg PO BID 01/10/14 04/13/19 Insulin Detemir (Levemir) [Levemir] 40 unit SQ HS 10/03/18 04/13/19 Tamsulosin HCl [Flomax] 0.4 mg PO DAILY 10/03/18 04/13/19 Cholecalciferol [Vitamin D3 (10 400 unit PO DAILY 10/21/18 04/13/19 Mcg = 400 Iu)] Multivitamins, Thera [Multivitamin 1 tab PO DAILY 10/21/18 04/13/19 (formulary)] Montelukast [Singulair] 10 mg PO DAILY PRN 01/24/19 04/13/19 Barley Powder Pill 1 tab PO BID 04/13/19 04/13/19 Cannabidiol (Cbd) [Epidiolex] 1 dose TOPICAL DAILY PRN 04/13/19 04/13/19 Losartan/Hydrochlorothiazide 1 tab PO DAILY 04/13/19 04/13/19 [Hyzaar 50-12.5 Tablet] Omeprazole [PriLOSEC] 40 mg PO DAILY PRN 04/13/19 04/13/19 Previous Rx's Medication Instructions Recorded Acetaminophen Tab [Tylenol] 1,000 mg PO Q6HR PRN tab 04/24/19 Allergies Allergy/AdvReac Type Severity Reaction Status Date / Time No Known Allergies Allergy Verified 04/20/19 06:31 Review of Systems ROS Statement: Those systems with pertinent positive or pertinent negative responses have been documented in the HPI. ROS Other: All systems not noted in ROS Statement are negative. Constitutional: Reports: weakness Eyes: Denies: vision change Respiratory: Denies: cough, dyspnea Cardiovascular: Denies: chest pain, palpitations, edema Gastrointestinal: Denies: abdominal pain, vomiting, diarrhea Genitourinary: Denies: dysuria Musculoskeletal: Denies: back pain Skin: Denies: rash Neurological: Denies: headache, weakness Past Medical History Past Medical History: Coronary Artery Disease (CAD), Cancer, Diabetes Mellitus, GERD/Reflux, Hyperlipidemia, Hypertension, Myocardial Infarction ([place]), Prostate Disorder Additional Past Medical History / Comment(s): gout, bladder Ca, finishing intrabladder dwelling chemo (BCG) treatment week of 01/24/19,squamous cell carcinioma left lung, neuropathy Last Myocardial Infarction Date:: 2008 History of Any Multi-Drug Resistant Organisms: None Reported Past Surgical History: Bladder Surgery, Heart Catheterization With Stent, Joint Replacement Additional Past Surgical History / Comment(s): 3 cardiac stents, bladder surgery for cancer, anais cataract surgery, total anais knee replacement, cervical fusion, port 08/07/2019, lobectomy, urerterectomy Past Anesthesia/Blood Transfusion Reactions: No Reported Reaction Date of Last Stent Placement:: 2008 Past Psychological History: No Psychological Hx Reported Smoking Status: Never smoker Past Alcohol Use History: Rare Past Drug Use History: None Reported - Past Family History Brother(s) Family Medical History: Cancer General Exam Limitations: no limitations General appearance: alert, in no apparent distress Head exam: Present: atraumatic, normocephalic Eye exam: Present: normal appearance. Absent: scleral icterus, conjunctival injection ENT exam: Present: mucous membranes dry Neck exam: Present: normal inspection, full ROM. Absent: tenderness Respiratory exam: Present: normal lung sounds bilaterally. Absent: respiratory distress, wheezes, rales, rhonchi, stridor, accessory muscle use Cardiovascular Exam: Present: regular rate, normal rhythm, normal heart sounds. Absent: systolic murmur, diastolic murmur, rubs, gallop GI/Abdominal exam: Present: soft. Absent: distended, tenderness, guarding, rebound, rigid, mass Extremities exam: Present: normal inspection, normal capillary refill. Absent: pedal edema, calf tenderness Back exam: Present: normal inspection Neurological exam: Present: alert Skin exam: Present: warm, dry, intact, normal color. Absent: rash Course Vital Signs 09/20/23 03:26 Temperature 98.9 F Pulse Rate 87 Respiratory 16 Rate Blood Pressure 123/67 O2 Sat by Pulse 95 Oximetry Disposition Referrals: Duane Lockhart DO [Primary Care Provider] - 1-2 days
[2023-09-20 04:48] LABS: Basophils % (A) 0 %; Eosinophils # (A) 0.1 k/uL (0-0.7); Eosinophils % (A) 0 %; HCT 39.6 % (39.0-53.0); HGB 13.3 gm/dL (13.0-17.5); Lymphocytes # (A) 0.9 k/uL (1.0-4.8); Lymphocytes % (A) 6 %; MCHC 33.5 g/dL (31.0-37.0); MCV 95.4 fL (80.0-100.0); Mean Platelet Volume 9.5; Monocytes % (A) 7 %; Neutrophils # (A) 12.9 k/uL (1.3-7.7); Neutrophils % (A) 86 %; Platelet Count 192 k/uL (150-450); RBC 4.15 m/uL (4.30-5.90); RDW 13.7 % (11.5-15.5)
[2023-09-20 05:10] LABS: ALT 22 U/L (4-49); AST 28 U/L (17-59); African American GFR (CKD) 66 (>60 ml/min/1.73 sqM); Albumin 3.4 g/dL (3.5-5.0); Alkaline Phosphatase 90 U/L (38-126); Anion Gap 10 mmol/L; Blood Urea Nitrogen 28 mg/dL (9-20); Calcium 8.5 mg/dL (8.4-10.2); Carbon Dioxide 23 mmol/L (22-30); Chloride 106 mmol/L (98-107); Glucose 204 mg/dL (74-99); Non-African American GFR(CKD) 57 (>60 ml/min/1.73 sqM); Potassium 4.2 mmol/L (3.5-5.1); Sodium 139 mmol/L (137-145); Total Protein 6.1 g/dL (6.3-8.2)
[2023-09-20 05:14] LABS: Appearance,Urine Cloudy (Clear); Bacteria,Urine Rare /hpf; Bilirubin,Urine Negative (Negative); Blood,Urine Small (Negative); Color,Urine Colorless; Glucose,Urine (UA) 2+ (Negative); Leukocyte Esterase,Urine Large (Negative); Mucus,Urine Rare /hpf; Nitrite,Urine Negative (Negative); PH, Urine 5.5 (5.0-8.0); Protein,Urine 1+ (Negative); RBC,Urine 5 /hpf (0-5); Specific Gravity,Urine 1.017 (1.001-1.035); Squamous Epithelial Cell,Urine <1 /hpf (0-4); Urobilinogen,Urine <2.0 mg/dL (<2.0); WBC,Urine 152 /hpf (0-5)
[2023-09-20 05:41] LABS: Ketones,Urine 2+ (Negative)
[2023-09-20] MEDS ORDERED: MONTELUKAST 10 MG TAB PO PRN (07:59)
[2023-09-20] MEDS ORDERED: PANTOPRAZOLE 40 MG TABLET PO PRN ×2 (07:59→12:14)
[2023-09-20] MEDS ORDERED: DEXTROSE 50% SYRINGE 50 ML IVP PRN ×2 (08:06)
--- NOTE | 2023-09-20 08:19 | P.HPIM ---
History of Present Illness H&P Date: 09/20/23 I reviewed the documentation as provided by the CARLI above, who is the original author of this note. 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 Patient presented to [facility] secondary to reports of weakness, confusion, and recurrent falls at home over the past few days and progressively worsening. He underwent evaluation at their facility and was found to have UTI with sepsis and concerns of a C3 fracture. He was transferred to our facility to undergo further evaluation and evaluation by orthospine surgery and urologist secondary to his history of complicated UTIs. Upon arrival to our facility, underwent evaluation in our emergency department. Vital signs upon arrival show blood pressure 123/67, heart rate 87, respiratory rate 16, temp 98.9 F, and SpO2 of 95% on room air. Completed and reviewed. CBC showing leukocytosis with WBC count of 15.0. BMP showing prerenal azotemia with BUN of 28, creatinine 1.23, GFR 57. Blood glucose was elevated at 204. Lactic acid was 1.2. Liver profile showing hypoalbuminemia with albumin of 3.4. Urinalysis was positive for protein, glucose, ketones, leukocyte esterase, and 152 WBCs. Patient was admitted under our services with consultation to orthospine surgery team and urology. Data and imaging reviewed from [facility]: CT head was negative for acute intracranial process. CT cervical spine reported changes of C3-C4 with partial osseous fusion and a minimally displaced fracture through C3 vertebral body more pronounced on the left side, unclear if subacute or chronic and showing no signs of epidural hematoma. EKG completed showing sinus tachycardia at 102 bpm with a first-degree AV block with [place] interval of 277 ms and no noted T wave or ST abnormalities showing no signs of acute ischemia upon personal review and interpretation. Labs completed and reviewed. CBC showing leukocytosis with WBC count of 13.35 and mild normocytic anemia with hemoglobin of 13.40. BMP showing elevated renal function with BUN of 32, and 1.71, and GFR 40.76. Liver profile showing mild hypoalbuminemia with albumin of 3.1 otherwise normal findings. Lactic acid was elevated at 2.20. Urinalysis was positive for infection. COVID, influenza A, influenza B, and RSV were negative. X-ray pelvis negative for acute process. Review of systems: Pertinent positives and negatives as discussed in HPI, a complete review of systems was performed and all other systems are negative. Physical exam: Vital signs reviewed and stable. General: Nontoxic, no distress and appears stated age. Derm: Skin warm and dry, normal coloration for ethnicity. Head: Atraumatic, normocephalic and symmetric. Hard c-collar in place. Eyes: EOMs intact, no lid lag, and anicteric sclera Mouth: no lip lesions, mucus membranes moist Cardiovascular: regular rate and rhythm with normal S1S2, systolic murmur, positive posterior tibial pulses bilaterally, and cap refill < 2 seconds. Lungs: Respirations even, regular, and unlabored on room air. Lungs CTA bilaterally, no rhonchi, no rales, no wheezing, and no accessory muscle usage. Abdominal: soft, nontender to palpation, no guarding, no appreciable organomega ly Ext: ROM intact. No gross muscle atrophy, no edema, no contractures Neuro: Speech clear, face symmetrical and CN II-XII grossly intact with no noted focal neuro deficits Psych: Alert and oriented to person, place, time, and situation. Appropriate and pleasant affect. Assessment and Plan of Care: Complicated UTI with history of bladder cancer status post intra bladder chemotherapy Prerenal azotemia -IV antibiotics with Rocephin 2 g every 24 hours. -Follow-up on urine culture results. -Consult placed to urology secondary to history of complicated UTIs and bladder cancer status post intra bladder chemotherapy -Order placed for bladder scanning as needed to monitor for retention and/or postvoid residuals -Strict I's and O's Concerns of possible C3 fracture -CT cervical spine being repeated -Orthospine surgery team consulted, appreciate recommendations -Hard c-collar to remain in place with C-spine precautions pending evaluation from orthospine surgery team. Diabetes mellitus with hyperglycemia -Continue Levemir 40 units nightly, hold metformin at this time and patient placed on glycemic protocol with NovoLog sliding scale. -Follow-up on hemoglobin A1c. CAD status post stenting Hypertension Hyperlipidemia -Patient to continue daily medication regimen with aspirin 81 mg daily, atorvastatin 40 mg nightly, metoprolol 25 mg daily, and telmisartan 80 mg daily. GERD -GI prophylaxis with Protonix 40 mg daily. Data and imaging reviewed: As stated above in HPI. The patient is admitted with an anticipated greater than 2 midnight stay for evaluation of complicated UTI and concerns of possible C3 fracture. CODE STATUS: Full code DVT prophylaxis: Lovenox Anticipated discharge date: Pending clinical course Anticipated discharge place: Home Patient was seen independently by Nurse Practitioner. This document was prepared using [employer] dictation software. Please allow for errors in renal technician while rare they do occur. Past Medical History Past Medical History: Coronary Artery Disease (CAD), Cancer, Diabetes Mellitus, GERD/Reflux, Hyperlipidemia, Hypertension, Myocardial Infarction ([place]), Prostate Disorder Additional Past Medical History / Comment(s): gout, bladder Ca, finishing intrabladder dwelling chemo (BCG) treatment week of 01/24/19,squamous cell carcinioma left lung, neuropathy Last Myocardial Infarction Date:: 2008 History of Any Multi-Drug Resistant Organisms: None Reported Past Surgical History: Bladder Surgery, Heart Catheterization With Stent, Joint Replacement Additional Past Surgical History / Comment(s): 3 cardiac stents, bladder surgery for cancer, anais cataract surgery, total naais knee replacement, cervical fusion, port 08/07/2019, lobectomy, urerterectomy Past Anesthesia/Blood Transfusion Reactions: No Reported Reaction Date of Last Stent Placement:: 2008 Past Psychological History: No Psychological Hx Reported Smoking Status: Never smoker Past Alcohol Use History: Rare Past Drug Use History: None Reported - Past Family History Brother(s) Family Medical History: Cancer Medications and Allergies Home Medications Medication Instructions Recorded Confirmed Type Aspirin EC [Ecotrin Low Dose] 81 mg PO DAILY 01/10/14 09/20/23 History Atorvastatin [Lipitor] 40 mg PO HS 01/10/14 09/20/23 History Metoprolol Succinate [Toprol XL] 25 mg PO DAILY 01/10/14 09/20/23 History metFORMIN HCL [Glucophage] 1,000 mg PO BID-W/MEALS 01/10/14 09/20/23 History Acetaminophen Tab [Tylenol Tab] 500 mg PO Q4H PRN 09/20/23 09/20/23 History Insulin Detemir [Levemir Flexpen] 40 units SQ HS 09/20/23 09/20/23 History Insulin Lispro [humaLOG Kwikpen] See Protocol SQ AC-TID 09/20/23 09/20/23 History Omeprazole [PriLOSEC] 40 mg PO DAILY PRN 09/20/23 09/20/23 History Sodium Chloride 5% Ophth Oint 1 applic LEFT EYE DAILY 09/20/23 09/20/23 History [Jose Ramon 128] Telmisartan [Micardis] 80 mg PO DAILY 09/20/23 09/20/23 History Allergies Allergy/AdvReac Type Severity Reaction Status Date / Time No Known Allergies Allergy Verified 09/20/23 09:28 Physical Exam Vitals: Vital Signs Temp Pulse Resp BP Pulse Ox 09/20/23 07:24 98.5 F 75 18 93/44 96 09/20/23 06:55 79 18 110/54 96 09/20/23 05:43 76 18 115/48 94 L 09/20/23 04:41 87 18 116/62 95 09/20/23 03:26 98.9 F 87 16 123/67 95 Intake and Output 09/19/23 09/20/23 09/20/23 22:59 06:59 14:59 Other: Weight 104.326 kg Results CBC & Chem 7: 09/20/23 04:22 09/20/23 04:22 Labs: Abnormal Lab Results - Last 24 Hours (Table) 09/20/23 09/20/23 09/20/23 Range/Units 04:22 04:22 04:22 WBC 15.0 H (3.8-10.6) k/uL RBC 4.15 L (4.30-5.90) m/uL Neutrophils # 12.9 H (1.3-7.7) k/uL Lymphocytes # 0.9 L (1.0-4.8) k/uL BUN 28 H (9-20) mg/dL Glucose 204 H (74-99) mg/dL Total Protein 6.1 L (6.3-8.2) g/dL Albumin 3.4 L (3.5-5.0) g/dL Urine Protein 1+ H (Negative) Urine Glucose (UA) 2+ H (Negative) Urine Ketones 2+ H (Negative) Urine Blood Small H (Negative) Ur Leukocyte Esterase Large H (Negative) Urine WBC 152 H (0-5) /hpf Urine WBC Clumps Rare H (None) /hpf Urine Bacteria Rare H (None) /hpf Urine Mucus Rare H (None) /hpf
--- NOTE | 2023-09-20 08:52 | CT ---
EXAMINATION TYPE: CT cervical spine wo con CT DLP: 642.7 mGycm, Automated exposure control for dose reduction was used. DATE OF EXAM: 09/20/2023 8:27 AM COMPARISON: None. CLINICAL INDICATION:Male, 77 years old with history of hx of C3-C4 fusion, recent falls, weakness; PH H, history of C3-C4 fusion, recent falls, weakness TECHNIQUE: Axial CT images from the skull base to the inferior aspect of T2 we obtained without intra venous contrast. Coronal and sagittal reformatted images were also reviewed. Contrast used: mL of , (if blank None) Oral contrast used: (if blank None) FINDINGS: Fracture: None. Osseous structures: Fixation hardware at C3-C4 anteriorly with discectomy. Hardware appears intact. M ultilevel degenerative disc disease changes with endplate spurring and disc osteophyte complex's. Vertebral alignment: Alignment within normal limits. Spinal canal/Neural Foramina: No evidence of significant spinal canal narrowing. No evidence for sign ificant neural foraminal stenosis. Neck soft tissues: Prevertebral soft tissues are within normal limits. Other: The airway is patent. The lung apices are clear. IMPRESSION: 1. No evidence of cervical spine fracture. 2. Postsurgical changes with hardware intact. 3. Moderate degenerative disc disease.
[2023-09-20 09:35] LABS: Glucose,Whole Blood 193 mg/dL (70-110)
[2023-09-20] MEDS: MULTIVITAMINS, THERA 1 EACH TAB PO SCH (09:37)
[2023-09-20] MEDS: LOSARTAN 50 MG TAB PO SCH (09:37)
[2023-09-20] MEDS: hydroCHLOROthiazide 12.5 MG CAP PO SCH (09:37)
[2023-09-20] MEDS: TAMSULOSIN 0.4 MG CAP.ER.24H PO SCH (09:37)
[2023-09-20] MEDS: METOPROLOL SUCCINATE (ER) 25 MG TAB.ER.24H PO SCH (09:37)
[2023-09-20] MEDS: ASPIRIN 81 MG PO SCH (09:37)
[2023-09-20] MEDS: CHOLECALCIFEROL 10 MCG (400 IU) TABLET PO SCH (09:37)
[2023-09-20 12:06] LABS: Glucose,Whole Blood 315 mg/dL (70-110)
[2023-09-20] MEDS: INSULIN ASPART (NovoLOG) 100 UNIT/ML VIAL SQ SCH (12:17)
[2023-09-20] MEDS: LOSARTAN 50 MG TAB PO ONE (13:32)
--- NOTE | 2023-09-20 15:03 | P.CNOR ---
History of Present Illness - [facility] Consult date: 09/20/23 Consult reason: other (History of previous C3-C4 cervical fusion, concern for fracture around C3) History of present illness: Patient is a 77-year-old male who was transferred from [facility] down to [facility] for further evaluation. Patient was initially evaluated at the hospital on for generalized weakness and confusion that had been present for the last week or so. Apparently the patient had taken a few ground-level falls. Patient was worked up for a urinary tract infection at that hospital. Imaging of the cervical spine did demonstrate his previous C3-C4 fusion, there was concern for possible fracture surrounding C3. The ER physician at [facility] did contact me to ask if spine evaluation was present, which it was. Patient was then transferred down to our hospital for further workup, they were admitted to internal medicine. Patient was evaluated today in the emergency room, a rigid c-collar was in place. Patient was very pleasant on exam, he did not seem confused during exam, he answered all my questions accurately. He states over the last week or so he has noticed some weakness that feels generalized and has had a few small falls he states. He normally ambulates with no assistive devices. He does live with his at home, he is very independent. Currently patient is having no neck pain at this time. He denies any numbness or tingling, radiating pain or generalized loss of strength in the bilateral upper or lower extremities. He does have a history of bilateral total knee replacements that were done at this hospital by other orthopedic providers. Patient denies any loss of bowel or bladder function. Patient does follow with the urology group in town for a few different issues. He denies any numbness or tingling to the genital or perineal region. Review of Systems Constitutional: Reports as per HPI Past Medical History Past Medical History: Coronary Artery Disease (CAD), Cancer, Diabetes Mellitus, GERD/Reflux, Hyperlipidemia, Hypertension, Myocardial Infarction ([place]), Prostate Disorder Additional Past Medical History / Comment(s): gout, bladder Ca, finishing intrabladder dwelling chemo (BCG) treatment week of 01/24/19,squamous cell carcinioma left lung, neuropathy Last Myocardial Infarction Date:: 2008 History of Any Multi-Drug Resistant Organisms: None Reported Past Surgical History: Bladder Surgery, Heart Catheterization With Stent, Joint Replacement Additional Past Surgical History / Comment(s): 3 cardiac stents, bladder surgery for cancer, anais cataract surgery, total anais knee replacement, cervical fusion, port 08/07/2019, lobectomy, urerterectomy Past Anesthesia/Blood Transfusion Reactions: No Reported Reaction Date of Last Stent Placement:: 2008 Past Psychological History: No Psychological Hx Reported Smoking Status: Never smoker Past Alcohol Use History: Rare Past Drug Use History: None Reported - Past Family History Brother(s) Family Medical History: Cancer Medications and Allergies Home Medications Medication Instructions Recorded Confirmed Type Aspirin EC [Ecotrin Low Dose] 81 mg PO DAILY 01/10/14 09/20/23 History Atorvastatin [Lipitor] 40 mg PO HS 01/10/14 09/20/23 History Metoprolol Succinate [Toprol XL] 25 mg PO DAILY 01/10/14 09/20/23 History metFORMIN HCL [Glucophage] 1,000 mg PO BID-W/MEALS 01/10/14 09/20/23 History Acetaminophen Tab [Tylenol Tab] 500 mg PO Q4H PRN 09/20/23 09/20/23 History Insulin Detemir [Levemir Flexpen] 40 units SQ HS 09/20/23 09/20/23 History Insulin Lispro [humaLOG Kwikpen] See Protocol SQ AC-TID 09/20/23 09/20/23 History Omeprazole [PriLOSEC] 40 mg PO DAILY PRN 09/20/23 09/20/23 History Sodium Chloride 5% Ophth Oint 1 applic LEFT EYE DAILY 09/20/23 09/20/23 History [Jose Ramon 128] Telmisartan [Micardis] 80 mg PO DAILY 09/20/23 09/20/23 History Allergies Allergy/AdvReac Type Severity Reaction Status Date / Time No Known Allergies Allergy Verified 09/20/23 09:28 Physical Examination Gen: AOx3, NAD VSS stable at this time Integument: No open lesions, sores, areas of erythema present in the cervical, thoracic or lumbar spine Palpation: No tenderness with palpation throughout the cervical, thoracic or lumbar spine ROM: Full range of motion in all major muscle groups of the bilateral upper and lower extremities Sensory Exam: Senory exam to light touch is intact C5-T1 Senosry exam to light touch is intact L2-S1 Motor: 5/5 strength appreciated the bilateral upper extremities with shoulder elevation, shoulder abduction, wrist extension, wrist flexion, elbow extension, elbow flexion, campaign marketing manager 5/5 strength appreciated the bilateral lower extremities with hip flexion, knee extension, knee flexion, plantarflexion, dorsiflexion, EHL, FHL Reflexes: 2/4 in all UE and LE Negative Travis's bilaterally Negative clonus bilaterally Special Test: Negative straight leg raise bilaterally Results - Labs Labs: Abnormal Lab Results - Last 24 Hours (Table) 09/20/23 09/20/23 09/20/23 Range/Units 04:22 04:22 04:22 WBC 15.0 H (3.8-10.6) k/uL RBC 4.15 L (4.30-5.90) m/uL Neutrophils # 12.9 H (1.3-7.7) k/uL Lymphocytes # 0.9 L (1.0-4.8) k/uL BUN 28 H (9-20) mg/dL Glucose 204 H (74-99) mg/dL POC Glucose (mg/dL) (70-110) mg/dL Total Protein 6.1 L (6.3-8.2) g/dL Albumin 3.4 L (3.5-5.0) g/dL Urine Protein 1+ H (Negative) Urine Glucose (UA) 2+ H (Negative) Urine Ketones 2+ H (Negative) Urine Blood Small H (Negative) Ur Leukocyte Esterase Large H (Negative) Urine WBC 152 H (0-5) /hpf Urine WBC Clumps Rare H (None) /hpf Urine Bacteria Rare H (None) /hpf Urine Mucus Rare H (None) /hpf 09/20/23 Range/Units 09:33 WBC (3.8-10.6) k/uL RBC (4.30-5.90) m/uL Neutrophils # (1.3-7.7) k/uL Lymphocytes # (1.0-4.8) k/uL BUN (9-20) mg/dL Glucose (74-99) mg/dL POC Glucose (mg/dL) 193 H (70-110) mg/dL Total Protein (6.3-8.2) g/dL Albumin (3.5-5.0) g/dL Urine Protein (Negative) Urine Glucose (UA) (Negative) Urine Ketones (Negative) Urine Blood (Negative) Ur Leukocyte Esterase (Negative) Urine WBC (0-5) /hpf Urine WBC Clumps (None) /hpf Urine Bacteria (None) /hpf Urine Mucus (None) /hpf H & H 09/20/23 Range/Units 04:22 Hgb 13.3 (13.0-17.5) gm/dL Hct 39.6 (39.0-53.0) % Result Diagrams: 09/20/23 04:22 09/20/23 04:22 - Diagnostic results CT scan - cervical: report reviewed, image reviewed (Images and reports were reviewed of the cervical spine CT. Images demonstrate no acute fractures or dislocations, hardware at C3-C4 is stable. There is multilevel cervical spondylosis with varying degrees of facet arthropathy. Multiple anterior osteophytes are noted throughout the cervical spine) Assessment and Plan Assessment: History of previous C3-C4 ACDF, stable Multilevel cervical spondylosis Multilevel cervical facet arthropathy Generalized weakness UTI Other medical comorbidities Plan: I was able to discuss the case, this to include both physical exam findings and imaging studies my attending Dr. Taylor. No emergent orthopedic surgical intervention is recommended at this time Discontinue rigid c-collar at this time Patient does have significant degenerative disc disease throughout the cervical spine including multiple areas with osteophytes anteriorly, facet arthropathy and likely central canal stenosis. Patient is very asymptomatic at this time, he is complaining of no cervical pain, he is having no upper extremity or lower extremity symptoms at this time. Patient may discontinue the rigid c-collar at this time GI and DVT prophylaxis per primary medical service PT/OT eval, gait evaluation and training recommended Other medical specialty recommendations appreciated Orthopedically patient remained stable, would recommend follow-up in the outpatient setting on an as-needed basis. Please contact our orthopedic service with any questions regarding this patient. Time with Patient: Less than 30
[2023-09-20 19:47] LABS: Glucose,Whole Blood 320 mg/dL (70-110)
[2023-09-20] MEDS: ATORVASTATIN 40 MG TAB PO SCH (20:16)
[2023-09-20] MEDS: INSULIN DETEMIR (LEVEMIR) 100 UNIT/ML SYR SQ SCH (20:52)
[2023-09-20] MEDS ORDERED: INSULIN DETEMIR (LEVEMIR) 100 UNIT/ML SYR SQ SCH (21:00)
[2023-09-21 05:50] LABS: Glucose,Whole Blood 161 mg/dL (70-110)
[2023-09-21] MEDS: LOSARTAN 50 MG TAB PO SCH (08:34)
[2023-09-21] MEDS: PANTOPRAZOLE 40 MG TABLET PO SCH (08:34)
[2023-09-21] MEDS: ENOXAPARIN 40 MG/0.4 ML SYRINGE SQ SCH (08:34)
[2023-09-21 08:46] LABS: HGB 12.4 g/dL (13.0-17.0); MCH 31.2 pg (27.0-32.0); MCHC 33.5 g/dL (32.0-37.0); Mean Platelet Volume 12.1 FL (9.5-12.2); NRBC Per 100 WBC 0 X 10*3/uL (0.00-0.01); Platelet Count 188 X 10*3/uL (140-440); RBC 3.98 X 10*6/uL (4.40-5.60); RDW 14.4 % (11.5-14.5); WBC 12.11 X 10*3/uL (4.50-10.00)
[2023-09-21 09:23] LABS: ALT 24 U/L (10-49); AST 24 U/L (14-35); Albumin 3.7 g/dL (3.8-4.9); Albumin/Globulin Ratio 1.61 Ratio (1.60-3.17); Alkaline Phosphatase 97 U/L (41-126); BUN/Creat Ratio 18.23 Ratio (12.00-20.00); Blood Urea Nitrogen 23.7 mg/dL (9.0-27.0); Calcium 8.2 mg/dL (8.7-10.3); Carbon Dioxide 23.1 mmol/L (21.6-31.8); Chloride 103 mmol/L (96-109); Globulin 2.3 g/dL (1.6-3.3); Glucose 178 mg/dL (70-110); Sodium 137 mmol/L (135-145); Total Bilirubin 0.3 mg/dL (0.3-1.2)
[2023-09-21 11:36] LABS: Glucose,Whole Blood 245 mg/dL (70-110)
--- NOTE | 2023-09-21 12:50 | P.GSCN ---
History of Present Illness Consult date: 09/21/23 Reason for Consult: UTI, bladder cancer History of present illness: This is a 77-year-old male with history of recurrent bladder cancer he is a patient of Dr. Crowe. Has underwent multiple resections. Indicated his last TURBT was more than a year ago. He presented to the hospital with weakness and fall. Urine analysis on presentation was concerning for UTI. He had his last follow-up with Dr. Crowe on September 16, at that time he underwent a cystoscopy that showed no evidence of bladder cancer recurrence within the bladder. He does have history of recurrent UTIs, has had multiple positive Enterococcus UTIs on review of cultures. He indicated on Wednesday he started noticed feeling weak, and since that time has had recurrent falls and that was the reason he presented to the hospital. He denies denies any dysuria or gross hematuria. Denies any fevers, chills or flank pain. On presentation creatinine was 1.3 which is his baseline Review of Systems - Constitutional Reports weakness, Denies fever, Denies weight loss - EENT Ears, nose, mouth and throat: Denies dysphagia - Cardiovascular Denies chest pain, Denies shortness of breath - Respiratory Denies cough, Denies 7 - Gastrointestinal Reports as per HPI - Genitourinary Denies dysuria, Denies hematuria - Musculoskeletal Reports frequent falls Past Medical History Past Medical History: Coronary Artery Disease (CAD), Cancer, Diabetes Mellitus, GERD/Reflux, Hyperlipidemia, Hypertension, Myocardial Infarction (TN), Prostate Disorder Additional Past Medical History / Comment(s): gout, bladder Ca, finishing intrabladder dwelling chemo (BCG) treatment week of 01/24/19,squamous cell carcinioma left lung, neuropathy Last Myocardial Infarction Date:: 2008 History of Any Multi-Drug Resistant Organisms: None Reported Past Surgical History: Bladder Surgery, Heart Catheterization With Stent, Joint Replacement Additional Past Surgical History / Comment(s): 3 cardiac stents, bladder surgery for cancer, anais cataract surgery, total anais knee replacement, cervical fusion, port 08/07/2019, lobectomy, urerterectomy Past Anesthesia/Blood Transfusion Reactions: No Reported Reaction Date of Last Stent Placement:: 2008 Past Psychological History: No Psychological Hx Reported Smoking Status: Never smoker Past Alcohol Use History: Rare Additional Past Alcohol Use History / Comment(s): quit - sep 2008 Past Drug Use History: None Reported Additional Drug Use History / Comment(s): cbd cream to knees for pain - Past Family History Brother(s) Family Medical History: Cancer Medications and Allergies Home Medications Medication Instructions Recorded Confirmed Type Aspirin EC [Ecotrin Low Dose] 81 mg PO DAILY 01/10/14 09/20/23 History Atorvastatin [Lipitor] 40 mg PO HS 01/10/14 09/20/23 History Metoprolol Succinate [Toprol XL] 25 mg PO DAILY 01/10/14 09/20/23 History metFORMIN HCL [Glucophage] 1,000 mg PO BID-W/MEALS 01/10/14 09/20/23 History Acetaminophen Tab [Tylenol Tab] 500 mg PO Q4H PRN 09/20/23 09/20/23 History Insulin Detemir [Levemir Flexpen] 40 units SQ HS 09/20/23 09/20/23 History Insulin Lispro [humaLOG Kwikpen] See Protocol SQ AC-TID 09/20/23 09/20/23 History Omeprazole [PriLOSEC] 40 mg PO DAILY PRN 09/20/23 09/20/23 History Sodium Chloride 5% Ophth Oint 1 applic LEFT EYE DAILY 09/20/23 09/20/23 History [Jose Ramon 128] Telmisartan [Micardis] 80 mg PO DAILY 09/20/23 09/20/23 History Allergies Allergy/AdvReac Type Severity Reaction Status Date / Time No Known Allergies Allergy Verified 09/20/23 09:28 Surgical - Exam Vital Signs Temp Pulse Resp BP Pulse Ox 98.9 F 87 16 123/67 95 09/20/23 03:26 09/20/23 03:26 09/20/23 03:26 09/20/23 03:26 09/20/23 03:26 - General no distress, no pain - Eyes normal ocular movement, no pale - ENT normal nares, normal mucosa - Respiratory normal expansion, normal respiratory effort - Abdomen Abdomen: soft, non tender, no distended - Psychiatric oriented to time, oriented to person, oriented to place Results - Labs 09/21/23 05:35 09/21/23 05:35 Abnormal Lab Results - Last 24 Hours (Table) 09/20/23 09/21/23 09/21/23 Range/Units 19:45 05:35 05:35 WBC 12.11 H (4.50-10.00) X 10*3/uL RBC 3.98 L (4.40-5.60) X 10*6/uL Hgb 12.4 L (13.0-17.0) g/dL Hct 37.0 L (39.6-50.0) % Est GFR (CKD-EPI) (>=60) Glucose (70-110) mg/dL POC Glucose (mg/dL) 320 H (70-110) mg/dL Hemoglobin A1c 8.6 H (<=6.0) % Calcium (8.7-10.3) mg/dL Total Protein (6.2-8.2) g/dL Albumin (3.8-4.9) g/dL 09/21/23 09/21/23 09/21/23 Range/Units 05:35 05:48 11:34 WBC (4.50-10.00) X 10*3/uL RBC (4.40-5.60) X 10*6/uL Hgb (13.0-17.0) g/dL Hct (39.6-50.0) % Est GFR (CKD-EPI) 57 L (>=60) Glucose 178 H (70-110) mg/dL POC Glucose (mg/dL) 161 H 245 H (70-110) mg/dL Hemoglobin A1c (<=6.0) % Calcium 8.2 L (8.7-10.3) mg/dL Total Protein 6.0 L (6.2-8.2) g/dL Albumin 3.7 L (3.8-4.9) g/dL Diabetes panel 09/21/23 09/21/23 Range/Units 05:35 05:35 Sodium 137 (135-145) mmol/L Potassium 4.0 (3.5-5.5) mmol/L Chloride 103 (96-109) mmol/L Carbon Dioxide 23.1 (21.6-31.8) mmol/L BUN 23.7 (9.0-27.0) mg/dL Creatinine 1.3 (0.6-1.5) mg/dL Glucose 178 H (70-110) mg/dL Hemoglobin A1c 8.6 H (<=6.0) % Calcium 8.2 L (8.7-10.3) mg/dL AST 24 (14-35) U/L ALT 24 (10-49) U/L Alkaline Phosphatase 97 (41-126) U/L Total Protein 6.0 L (6.2-8.2) g/dL Albumin 3.7 L (3.8-4.9) g/dL Calcium panel 09/21/23 Range/Units 05:35 Calcium 8.2 L (8.7-10.3) mg/dL Albumin 3.7 L (3.8-4.9) g/dL Pituitary panel 09/21/23 Range/Units 05:35 Sodium 137 (135-145) mmol/L Potassium 4.0 (3.5-5.5) mmol/L Chloride 103 (96-109) mmol/L Carbon Dioxide 23.1 (21.6-31.8) mmol/L BUN 23.7 (9.0-27.0) mg/dL Creatinine 1.3 (0.6-1.5) mg/dL Glucose 178 H (70-110) mg/dL Calcium 8.2 L (8.7-10.3) mg/dL Adrenal panel 09/21/23 Range/Units 05:35 Sodium 137 (135-145) mmol/L Potassium 4.0 (3.5-5.5) mmol/L Chloride 103 (96-109) mmol/L Carbon Dioxide 23.1 (21.6-31.8) mmol/L BUN 23.7 (9.0-27.0) mg/dL Creatinine 1.3 (0.6-1.5) mg/dL Glucose 178 H (70-110) mg/dL Calcium 8.2 L (8.7-10.3) mg/dL Total Bilirubin 0.3 (0.3-1.2) mg/dL AST 24 (14-35) U/L ALT 24 (10-49) U/L Alkaline Phosphatase 97 (41-126) U/L Total Protein 6.0 L (6.2-8.2) g/dL Albumin 3.7 L (3.8-4.9) g/dL Assessment and Plan Assessment: 77-year-old male history of bladder cancer requiring multiple resection, had a cystoscopy on September 16, developed UTI post cystoscopy. Does have history of recurrent UTIs. This point recommend keeping in the hospital until his urine culture is finalized, recommend 7 days of antibiotics based on culture susceptibility. Agree with obtaining bladder scan to rule out retention as the cause of his UTIs. Advised to keep his follow-up for surveillance cystoscopy with Dr. Crowe which is scheduled for 6 months from now
--- NOTE | 2023-09-21 15:37 | P.PN ---
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 Patient presented to [facility] secondary to reports of weakness, confusion, and recurrent falls at home over the past few days and progressively worsening. He underwent evaluation at their facility and was found to have UTI with sepsis and concerns of a C3 fracture. He was transferred to our facility to undergo further evaluation and evaluation by orthospine surgery and urologist secondary to his history of complicated UTIs. Upon arrival to our facility, underwent evaluation in our emergency department. Vital signs upon arrival show blood pressure 123/67, heart rate 87, respiratory rate 16, temp 98.9 F, and SpO2 of 95% on room air. Completed and reviewed. CBC showing leukocytosis with WBC count of 15.0. BMP showing prerenal azotemia with BUN of 28, creatinine 1.23, GFR 57. Blood glucose was elevated at 204. Lactic acid was 1.2. Liver profile showing hypoalbuminemia with albumin of 3.4. Urinalysis was positive for protein, glucose, ketones, leukocyte esterase, and 152 WBCs. Patient was admitted under our services with consultation to orthospine surgery team and urology. Data and imaging reviewed from [facility]: CT head was negative for acute intracranial process. CT cervical spine reported changes of C3-C4 with partial osseous fusion and a minimally displaced fracture through C3 vertebral body more pronounced on the left side, unclear if subacute or chronic and showing no signs of epidural hematoma. EKG completed showing sinus tachycardia at 102 bpm with a first-degree AV block with KS interval of 277 ms and no noted T wave or ST abnormalities showing no signs of acute ischemia upon personal review and interpretation. Labs completed and reviewed. CBC showing leukocytosis with WBC count of 13.35 and mild normocytic anemia with hemoglobin of 13.40. BMP showing elevated renal function with BUN of 32, and 1.71, and GFR 40.76. Liver profile showing mild hypoalbuminemia with albumin of 3.1 otherwise normal findings. Lactic acid was elevated at 2.20. Urinalysis was positive for infection. COVID, influenza A, influenza B, and RSV were negative. X-ray pelvis negative for acute process. Physical exam: Vital signs reviewed and stable. General: Nontoxic, no distress and appears stated age. Derm: Skin warm and dry, normal coloration for ethnicity. Head: Atraumatic, normocephalic and symmetric. Hard c-collar in place. Eyes: EOMs intact, no lid lag, and anicteric sclera Mouth: no lip lesions, mucus membranes moist Cardiovascular: regular rate and rhythm with normal S1S2, systolic murmur, positive posterior tibial pulses bilaterally, and cap refill < 2 seconds. Lungs: Respirations even, regular, and unlabored on room air. Lungs CTA bilaterally, no rhonchi, no rales, no wheezing, and no accessory muscle usage. Abdominal: soft, nontender to palpation, no guarding, no appreciable organomegaly Ext: ROM intact. No gross muscle atrophy, no edema, no contractures Neuro: Speech clear, face symmetrical and CN II-XII grossly intact with no noted focal neuro deficits Psych: Alert and oriented to person, place, time, and situation. Appropriate and pleasant affect. Assessment and Plan of Care: Complicated UTI with history of bladder cancer status post intra bladder chemotherapy Prerenal azotemia -IV antibiotics with Rocephin 2 g every 24 hours. -Order placed for ultrasound kidneys/bladder -Follow-up on urine culture results -Consult placed to urology secondary to history of complicated UTIs and bladder cancer status post intra bladder chemotherapy -Order placed for bladder scanning as needed to monitor for retention and/or po stvoid residuals -Strict I's and O's Abnormal CT findings, le C3 fracture ruled out -CT cervical spine repeated revealing no evidence of cervical spine fracture showing postsurgical changes with hardware intact and moderate degenerative disc disease. -Orthospine surgery team consulted, discussed plan of care with orthopedic PA stating C3 fracture ruled out and no need for cervical collar at this time. -Hard c-collar to remain in place with C-spine precautions pending evaluation from orthospine surgery team. Diabetes mellitus with hyperglycemia -Continue Levemir 40 units nightly, hold metformin at this time and patient placed on glycemic protocol with NovoLog sliding scale. -Hemoglobin A1c 8.6%. CAD status post stenting Hypertension Hyperlipidemia -Patient to continue daily medication regimen with aspirin 81 mg daily, atorvastatin 40 mg nightly, metoprolol 25 mg daily, and telmisartan 80 mg daily. GERD -GI prophylaxis with Protonix 40 mg daily. Data and imaging reviewed: Morning labs completed and reviewed. CBC showing leukocytosis with WBC count of 12.11 and stable normocytic anemia with hemoglobin of 12.4. BMP showing mild hyperglycemia with glucose of 178. Magnesium 2.0. Hemoglobin A1c 8.6%.. -Vital signs reviewed. Blood pressure 131/71, heart rate 78, respiratory rate 16, temp 98.4 F, and SpO2 of 95% on room air. CODE STATUS: Full code DVT prophylaxis: Lovenox Anticipated discharge date: Pending clinical course Anticipated discharge place: Home Patient was seen independently by Nurse Practitioner. This document was prepared using [employer] dictation software. Please allow for errors in flexo press operator while rare they do occur. Wild Valente NP rendered care for this patient independently, reviewed the findings and plan as documented in the note above. I did not physically speak with or examine the patient on this date. Objective - Vital Signs Vital signs: Vital Signs Temp 98.4 F 09/21/23 07:15 Pulse 78 09/21/23 07:15 Resp 16 09/21/23 07:15 BP 131/71 09/21/23 07:15 Pulse Ox 95 09/21/23 07:15 FiO2 Intake & Output 09/20/23 09/21/23 09/21/23 18:59 06:59 18:59 Weight 104.326 kg Other: Voiding Method Toilet Urinal - Labs CBC & Chem 7: 09/21/23 05:35 09/21/23 05:35 Labs: Abnormal Lab Results - Last 24 Hours (Table) 09/20/23 09/20/23 09/20/23 Range/Units 09:33 12:05 19:45 POC Glucose (mg/dL) 193 H 315 H 320 H (70-110) mg/dL 09/21/23 Range/Units 05:48 POC Glucose (mg/dL) 161 H (70-110) mg/dL
[2023-09-21 16:25] LABS: Glucose,Whole Blood 348 mg/dL (70-110)
[2023-09-21 21:02] LABS: Glucose,Whole Blood 214 mg/dL (70-110)
[2023-09-22 02:09] VITALS: RESP 16
[2023-09-22 06:15] LABS: Glucose,Whole Blood 86 mg/dL (70-110)
[2023-09-22 07:28] VITALS: BP 129/73; PULSE 64; TEMP 98.1
--- NOTE | 2023-09-22 08:23 | US ---
EXAMINATION TYPE: US kidneys/renal and bladder DATE OF EXAM: 09/21/2023 COMPARISON: CT 11/12/2022 US 05/31/2018 CLINICAL INDICATION: Male, 77 years old with history of Complicated UTI with history of bladder cance r sta; Patient denies any signs or symptoms at this time EXAM MEASUREMENTS: Right Kidney: 11.9 x 5.4 x 6.2 cm Left Kidney: 12.8 x 5.9 x 5.5 cm Post Void Residual Volume: NA m Right Kidney: wnl Left Kidney: wnl Bladder: ?WNL artifact vs ?? Bilateral Jets seen: Yes Normal Post Void Residual: NA There is no evidence for hydronephrosis at this point in time. No nephrolithiasis is seen. No tamela s are identified. Bilateral ureteral jets are seen. IMPRESSION: No significant abnormality appreciated at this time.
--- NOTE | 2023-09-22 13:22 | P.DS ---
Providers Date of admission: 09/20/23 05:50 Expected date of discharge: 09/22/23 Attending physician: Khloe Dean MD Consults: 09/20/23 05:50 Consult Physician Routine Consulting Provider: Favian Taylor Consult Reason/Comments: C3 fracture, Do you want consulting provider notified?: Yes 09/20/23 16:10 Consult Physician Routine Consulting Provider: Sharif Crowe Consult Reason/Comments: complicated UTI s/p bladder cancer with intrabladder chemo Do you want consulting provider notified?: Yes Primary care physician: Duane Lockhart Hospital Course: Discharge Diagnosis: Complicated UTI with history of bladder cancer status post intra bladder chemotherapy. Patient received 3-day course of IV antibiotics with Rocephin. Urine culture did result negative however, this was obtained after initiation of antibiotics secondary to transfer. Patient had improvement of leukocytosis and currently free from any complaints. Renal/bladder ultrasound was negative for acute process. Secondary to patient's complicated history of bladder cancer status post multiple surgical resections and intra bladder chemotherapy patient to be discharged home on additional 4-day course of oral antibiotics with Keflex 500 mg every 6 hours to total a treatment course of antibiotics of 7 days. Patient to follow-up outpatient with urology as scheduled. Prerenal azotemia, resolved after IV fluid hydration. Abnormal CT findings, C3 fracture ruled out Diabetes mellitus with hyperglycemia. Hemoglobin A1c 8.6%. Patient encouraged to follow a heart healthy and carb consistent diet and to resume metformin 1000 mg twice daily with meals, Levemir 40 units nightly, and lispro 3 times daily with meals. CAD status post stenting. Patient to continue daily medication regimen with aspirin 81 mg daily, atorvastatin 40 mg nightly, metoprolol 25 mg daily, and telmisartan 80 mg daily. Hypertension. Patient to continue daily medication regimen with metoprolol 25 mg daily and telmisartan 80 mg daily. Hyperlipidemia. Patient to continue daily medication regimen with atorvastatin 40 mg nightly. GERD. Continue GI prophylaxis with Protonix 40 mg daily. 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 Patient presented to [facility] secondary to reports of weakness, confusion, and recurrent falls at home over the past few days and progressively worsening. He underwent evaluation at their facility and was found to have UTI with sepsis and concerns of a C3 fracture. He was transferred to our facility to undergo further evaluation and evaluation by orthospine surgery and urologist secondary to his history of complicated UTIs. Upon arrival to our facility, underwent evaluation in our emergency department. Vital signs upon arrival show blood pressure 123/67, heart rate 87, respiratory rate 16, temp 98.9 F, and SpO2 of 95% on room air. Completed and reviewed. CBC showing leukocytosis with WBC count of 15.0. BMP showing prerenal azotemia with BUN of 28, creatinine 1.23, GFR 57. Blood glucose was elevated at 204. Lactic acid was 1.2. Liver profile showing hypoalbuminemia with albumin of 3.4. Urinalysis was positive for protein, glucose, ketones, leukocyte esterase, and 152 WBCs. Patient was admitted under our services with consultation to orthospine surgery team and urology. Patient received 3-day course of IV antibiotics with Rocephin. Urine culture did result negative however, this was obtained after initiation of antibiotics secondary to transfer. Patient had improvement of leukocytosis and currently free from any complaints. Renal/bladder ultrasound was negative for acute process. Secondary to patient's complicated history of bladder cancer status post multiple surgical resections and intra bladder chemotherapy patient to be discharged home on additional 4-day course of oral antibiotics with Keflex 500 mg every 6 hours to total a treatment course of antibiotics of 7 days. Patient to follow-up outpatient with urology as scheduled. Data and imaging reviewed from [facility]: CT head was negative for acute intracranial process. CT cervical spine reported changes of C3-C4 with partial osseous fusion and a minimally displaced fracture through C3 vertebral body more pronounced on the left side, unclear if subacute or chronic and showing no signs of epidural hematoma. EKG completed showing sinus tachycardia at 102 bpm with a first-degree AV block with MS interval of 277 ms and no noted T wave or ST abnormalities showing no signs of acute ischemia upon personal review and interpretation. Labs completed and reviewed. CBC showing leukocytosis with WBC count of 13.35 and mild normocytic anemia with hemoglobin of 13.40. BMP showing elevated renal function with BUN of 32, and 1.71, and GFR 40.76. Liver profile showing mild hy poalbuminemia with albumin of 3.1 otherwise normal findings. Lactic acid was elevated at 2.20. Urinalysis was positive for infection. COVID, influenza A, influenza B, and RSV were negative. X-ray pelvis negative for acute process. Physical exam: Vital signs reviewed and stable. General: Nontoxic, no distress and appears stated age. Derm: Skin warm and dry, normal coloration for ethnicity. Head: Atraumatic, normocephalic and symmetric. Hard c-collar in place. Eyes: EOMs intact, no lid lag, and anicteric sclera Mouth: no lip lesions, mucus membranes moist Cardiovascular: regular rate and rhythm with normal S1S2, systolic murmur, positive posterior tibial pulses bilaterally, and cap refill < 2 seconds. Lungs: Respirations even, regular, and unlabored on room air. Lungs CTA bilaterally, no rhonchi, no rales, no wheezing, and no accessory muscle usage. Abdominal: soft, nontender to palpation, no guarding, no appreciable organomegaly Ext: ROM intact. No gross muscle atrophy, no edema, no contractures Neuro: Speech clear, face symmetrical and CN II-XII grossly intact with no noted focal neuro deficits Psych: Alert and oriented to person, place, time, and situation. Appropriate and pleasant affect. A total of 34 minutes of time were spent preparing this complex discharge summary. Pt was discharged on 09/22/2023 at 9:58 AM. Patient was seen independently by Nurse Practitioner. This document was prepared using [employer] dictation software. Please allow for errors in silk screen printer helper while rare they do occur. Wild Valente NP rendered care for this patient independently, reviewed the findings and plan as documented in the note above. I did not physically speak with or examine the patient on this date. Patient Condition at Discharge: Stable Plan - Discharge Summary Discharge Rx Participant: No New Discharge Prescriptions: New Cephalexin [Keflex] 500 mg PO Q6HR 4 Days #16 cap Continue metFORMIN HCL [Glucophage] 1,000 mg PO BID-W/MEALS Aspirin EC [Ecotrin Low Dose] 81 mg PO DAILY Atorvastatin [Lipitor] 40 mg PO HS Metoprolol Succinate [Toprol XL] 25 mg PO DAILY Sodium Chloride 5% Ophth Oint [Jose Ramon 128] 1 applic LEFT EYE DAILY Omeprazole [PriLOSEC] 40 mg PO DAILY PRN PRN Reason: GERD Insulin Lispro [humaLOG Kwikpen] See Protocol SQ AC-TID Acetaminophen Tab [Tylenol] 500 mg PO Q4H PRN PRN Reason: Pain Or Fever > 100.5 Telmisartan [Micardis] 80 mg PO DAILY Insulin Detemir [Levemir Flexpen] 40 units SQ HS Discharge Medication List Aspirin EC [Ecotrin Low Dose] 81 mg PO DAILY 01/10/14 [History] Atorvastatin [Lipitor] 40 mg PO HS 01/10/14 [History] Metoprolol Succinate [Toprol XL] 25 mg PO DAILY 01/10/14 [History] metFORMIN HCL [Glucophage] 1,000 mg PO BID-W/MEALS 01/10/14 [History] Acetaminophen Tab [Tylenol] 500 mg PO Q4H PRN 09/20/23 [History] Insulin Detemir [Levemir Flexpen] 40 units SQ HS 09/20/23 [History] Insulin Lispro [humaLOG Kwikpen] See Protocol SQ AC-TID 09/20/23 [History] Omeprazole [PriLOSEC] 40 mg PO DAILY PRN 09/20/23 [History] Sodium Chloride 5% Ophth Oint [Jose Ramon 128] 1 applic LEFT EYE DAILY 09/20/23 [History] Telmisartan [Micardis] 80 mg PO DAILY 09/20/23 [History] Cephalexin [Keflex] 500 mg PO Q6HR 4 Days #16 cap 09/22/23 [Rx] Follow up Appointment(s)/Referral(s): Sharif Crowe MD [STAFF PHYSICIAN] - 10/01/23 10:20 am Favian aTylor DO [Doctor of Osteopathic Medicine] - As Needed Duane Lockhart DO [Primary Care Provider] - 09/27/23 3:45 pm Patient Instructions/Handouts: Urinary Tract Infection in Men (DC) Activity/Diet/Wound Care/Special Instructions: Activity: As tolerated. Take breaks as needed. Diet: Heart healthy and carb consistent diet. Avoid salts, or foods with hidden salts such as canned or boxed foods and frozen dinners. Extra salt makes your heart work harder and traps the fluid in your body for longer. Special Instructions: Take all of your medications as directed and remember to keep all of your doctor's appointments and follow-up as needed. Thank you for allowing us to participate in your care, it was truly a pleasure having you for our patient!!! 0 Discharge Disposition: HOME SELF-CARE
== END 2023-09-22 11:36 | disposition home or self-care (01) ==
LOC: EC 03:19 → 6NMEDSUR 05:50 → 4SSUR 07:25
PROVIDERS: ADMIT Internal Medicine; ATTEND Internal Medicine
DX: N39.0 Urinary tract infection, site not specified (principal); M47.812 Spondylosis without myelopathy or radiculopathy, cervical region; R53.1 Weakness; R79.89 Other specified abnormal findings of blood chemistry; E11.65 Type 2 diabetes mellitus with hyperglycemia; I25.10 Atherosclerotic heart disease of native coronary artery without angina pectoris; K21.9 Gastro-esophageal reflux disease without esophagitis; E78.5 Hyperlipidemia, unspecified; I10 Essential (primary) hypertension; E11.40 Type 2 diabetes mellitus with diabetic neuropathy, unspecified; R29.6 Repeated falls; I25.2 Old myocardial infarction; Z85.51 Personal history of malignant neoplasm of bladder; Z85.118 Personal history of other malignant neoplasm of bronchus and lung; Z92.21 Personal history of antineoplastic chemotherapy; Z95.5 Presence of coronary angioplasty implant and graft; Z98.1 Arthrodesis status; Z79.82 Long term (current) use of aspirin; Z79.899 Other long term (current) drug therapy; Z79.84 Long term (current) use of oral hypoglycemic drugs; Z79.4 Long term (current) use of insulin; Z87.440 Personal history of urinary (tract) infections
CPT/HCPCS: 96366 ×2; 96372 ×2; 96365; 99285; 36415; 97161; 97165; 80053 ×2; 83605; 83735; 85025; 85027; 81001; 87086; 83036; 76770; 72125; G0378 ×4; L0174; J0696 ×3; J1650 ×2